=== PATIENT | female | born 1990 ===

== ENCOUNTER 2020-09-05 16:57 | Emergency (ER) | payer MEDICAID, SELFPAY ==
[2020-09-05 17:55] VITALS: BP 114/70; PULSE 78; RESP 16; TEMP 36.8; O2SAT 100; BMI 15.4
--- NOTE | 2020-09-05 18:34 | PC.NURSE ---
PT ambulated to pod with steady gait, denies complaints at this time. Pt states she has been very depressed with thoughts that she does not want to be alive, but states she does not want to kill herself. Pt states she is not taking any medications at this time.
[2020-09-05 20:00] VITALS: RESP 18
[2020-09-05 20:42] LABS: MANUAL DIFF FLAG NO
[2020-09-05 20:45] LABS: Basophils Percent Auto 0.5 % (0-2); Eosinophils Absolute Auto 0.1 X10*3/uL (0.0-0.4); Eosinophils Percent Auto 1.1 % (0-4); Hematocrit 39.2 % (37-47); Hemoglobin 12.5 g/dl (12.0-16.0); Lymphocytes Absolute Auto 2.4 X10*3/uL (1.2-4.9); Lymphocytes Percent Auto 38.1 % (20-40); Mean Corpuscular HGB Conc 31.9 g/dl (31.0-35.0); Mean Corpuscular Hemoglobin 26.3 pg (27.0-33.0); Mean Corpuscular Volume 82.4 fL (80-98); Mean Platelet Volume 10.2 fL (9.4-12.3); Monocytes Absolute Auto 0.6 X10*3/uL (0.1-1.2); Monocytes Percent Auto 9.9 % (2-11); Neutrophils Absolute Auto 3.1 X10*3/uL (2.0-8.3); Neutrophils Percent Auto 50.4 % (45-73); Platelet Count 158 X10*3/uL (160-400); Red Blood Count 4.76 X10*6/uL (4.20-5.50); Red Cell Distribution Width 13.1 % (11.0-16.0); White Blood Count 6.2 X10*3/uL (4.8-10.8)
[2020-09-05 21:05] LABS: Ethanol < 10 mg/dL
[2020-09-05 21:06] LABS: Alanine Aminotransferase 8 U/L (0-31); Albumin Level 4.6 g/dL (3.5-5.0); Alkaline Phosphatase 52 U/L (39-117); Anion Gap 11 (12-20); Aspartate Amino Transferase 13 U/L (5-31); Bilirubin Total 0.7 mg/dL (0.0-1.0); Blood Urea Nitrogen 10 mg/dL (9-16); Carbon Dioxide 26 mmol/L (22-29); Chloride 100 mmol/L (96-108); Creatinine Clr Calc Pharmacy 65.8; Estimated Glomerular Filt Rate > 60; Glucose Random 96 mg/dL (60-115); Potassium 3.6 mmol/l (3.3-5.1); Sodium 133 mmol/L (135-145); Total Protein 7.8 g/dL (6.5-8.0)
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
[2020-09-05 21:50] VITALS: BP 111/88; PULSE 76; RESP 18; TEMP 37; O2SAT 100
--- NOTE | 2020-09-05 23:20 | PC.NURSE ---
Faxed to [facility] at [phone]. Per [facility], staff member will come and evaluate pt during overnight shift.
[2020-09-05 23:38] VITALS: RESP 18
--- NOTE | 2020-09-06 00:21 | PC.NURSE ---
Sister called for update. Karine can be reached at [phone].
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
[2020-09-06 03:32] VITALS: RESP 18
[2020-09-06 05:12] LABS: SARS COV2 PCR INHOUSE NEGATIVE (Negative)
[2020-09-06 06:16] VITALS: BP 100/63; PULSE 57; RESP 15; TEMP 36.7; O2SAT 99
[2020-09-06 06:43] LABS: Glucose Urine UA NEG (NEG); Leukocyte Esterase Urine NEG (NEG); Nitrite Urine NEG (NEG); Specific Gravity - Urine >= 1.030 (1.005-1.025); Urine Blood NEG (NEG); Urine Ketones 15 MG/DL (NEG); Urine Protein NEG (NEG-TRACE)
[2020-09-06 06:45] LABS: Appearance Urine CLOUDY; Color Urine YELLOW
[2020-09-06 06:54] LABS: Amphetamine Screen Urine Not Detected (Not Detect); Barbiturates, Urine Not Detected (Not Detect); Benzodiazepines Screen Urine Not Detected (Not Detect); Cannabinoid Screen Urine POSITIVE (Not Detect); Cocaine Screen Urine Not Detected (Not Detect); Opiate Screen Urine Not Detected (Not Detect); Phencyclidine Screen Urine POSITIVE (Not Detect)
--- NOTE | 2020-09-06 06:56 | PC.NURSE ---
Report received. PT sleeping in bed. Breathing is even and unlabored. Plan is to transfer to respite this morning.
[2020-09-06 08:22] LABS: UPreg QC Valid YES
[2020-09-06 08:23] LABS: Urine Pregnancy NEGATIVE (NEGATIVE)
[2020-09-06 08:47] VITALS: BP 105/58; PULSE 62; RESP 18; TEMP 37.2; O2SAT 98
--- NOTE | 2020-09-06 09:08 | PC.NURSE ---
PT sleeping in bed. Breathing is even and unlabored. PT being transferred to respite facility today.
== END 2020-09-06 10:03 | disposition home or self-care (01) ==
PROVIDERS: Nurse Practitioner Primary Care; Emergency Provider Internal Medicine
DX: F32.9 Major depressive disorder, single episode, unspecified (principal); Z20.828 Contact with and (suspected) exposure to other viral communicable diseases; F17.200 Nicotine dependence, unspecified, uncomplicated; F12.90 Cannabis use, unspecified, uncomplicated; F16.90 Hallucinogen use, unspecified, uncomplicated
CPT/HCPCS: 36415; 80053; 80307; 80320; 81003; 81025; 85025; 87635; 99285

== ENCOUNTER 2021-01-13 22:58 | Emergency (ER) | payer MEDICAID, SELFPAY ==
[2021-01-13 23:07] VITALS: BP 106/67; BP 118/70; PULSE 61; PULSE 76; RESP 16; TEMP 37.2; O2SAT 100; O2SAT 99; BMI 18.8
[2021-01-14] VITALS: BP 105/56; PULSE 68; RESP 16; O2SAT 99
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
--- NOTE | 2021-01-14 00:56 | PC.NURSE ---
This RN spoke with patient. Pt denies SI/HI, states my tooth hurts (while pointing to left side of face). Pt does not appear to be in acute distress, was sleeping just prior to this RN and provider entering the room. Upon exiting room, the patient closed her eyes and went back to sleep. Per Melany (provider), plan to medicate and discharge for dental pain. recycling collections driver (Blanca) aware.
== END 2021-01-14 01:15 | disposition home or self-care (01) ==
PROVIDERS: Emergency Provider Internal Medicine
DX: F16.10 Hallucinogen abuse, uncomplicated (principal); K08.89 Other specified disorders of teeth and supporting structures; R51.9 Headache, unspecified; Z79.899 Other long term (current) drug therapy
CPT/HCPCS: 99283; 99284

== ENCOUNTER 2021-07-28 19:10 | Emergency (ER) | payer MEDICAID, SELFPAY ==
[2021-07-28 19:41] VITALS: BP 131/95; PULSE 79; RESP 18; TEMP 37.1; O2SAT 100; BMI 18.7
[2021-07-28 20:44] VITALS: BP 110/83; PULSE 98; RESP 20; O2SAT 100
[2021-07-28] MEDS: LORazepam 0.5 MG TABLET PO (21:38)
--- NOTE | 2021-07-29 00:27 | ED.ANXIETY ---
HPI - Anxiety General Chief Complaint: Anxiety Stated Complaint: Panic Attack Time Seen by Provider: 07/28/21 21:25 Source: patient Mode of arrival: ambulatory Limitations: no limitations History of Present Illness HPI narrative: . History of anxiety/panic attacks complaining of feeling panic attack for last few hours restless hyperventilating denies any recent life stressor at home do not take any medication for anxiety Related Data Previous Rx's Medication Instructions Recorded clindamycin HCl 300 mg capsule 300 mg PO BID 7 Days #14 cap 01/14/21 Allergies Allergy/AdvReac Type Severity Reaction Status Date / Time ibuprofen [IBUPROFEN] Allergy Mild HIVES Verified 07/28/21 19:45 Penicillins Allergy Unknown HIVES Verified 07/28/21 19:45 sulfamethoxazole Allergy Unknown RASH Verified 07/28/21 19:45 [From Bactrim] trimethoprim [From Bactrim] Allergy Unknown RASH Verified 07/28/21 19:45 vancomycin [From Vancocin] Allergy Unknown Rash Verified 07/28/21 19:45 Review of Systems Review of Systems: Yes all other systems are reviewed and are negative PMFSH Past Medical History Surgical History History of hysterectomy Social History Social History Alcohol intake: unknown Advance Directives: No Patient : No Physical Exam Vital Signs: Vital Signs: Last Vital Signs Temp 98.7 F 07/28/21 19:41 Pulse 98 07/28/21 20:44 Resp 20 07/28/21 20:44 BP 110/83 07/28/21 20:44 Pulse Ox 100 07/28/21 20:44 Body Mass Index 18.7 Appearance: Alert. Oriented X3. Anxious Eyes: PERRLA, No Nystagmus ENT: Pharynx normal. Oral Mucosa moist Neck: Normal inspection. Neck supple. CVS: Normal heart rate and rhythm. Pulses normal. Respiratory: No respiratory distress. Equal air entry bilateral, no wheezing/rales/rhonchi Abdomen: Soft and nontender. Bowel sounds are present, no mass palpable Skin: Skin warm and dry. Normal skin color. Normal skin turgor. Extremities: No lower extremity edema. No calf tenderness Psych: Restless and anxious no suicidal ideation no hallucination or delusion Neuro: Oriented X 3. No motor deficit. Discharge Plan Discharge Clinical Impression: Panic disorder Patient Disposition: Home, Self-Care Instructions: Panic Attack (ED) Additional Instructions: Rest at home follow-up with pre PCP Prescriptions: No Action clindamycin HCl 300 mg capsule 300 mg PO BID 7 Days Qty: 14 RF: 0 Interventions: ED Discharge Assessment Last Done: 07/28/21 21:42 Discharge Date/Time: 07/28/21 21:44
== END 2021-07-28 21:44 | disposition home or self-care (01) ==
PROVIDERS: Emergency Provider Internal Medicine
DX: F41.0 Panic disorder [episodic paroxysmal anxiety] (principal)
CPT/HCPCS: 99284

== ENCOUNTER 2021-08-01 01:34 | Emergency (ER) | payer MEDICAID, SELFPAY ==
[2021-08-01 01:41] VITALS: BP 116/64; PULSE 63; RESP 16; TEMP 36.9; O2SAT 99; BMI 19.9
--- NOTE | 2021-08-01 01:42 | ED.ANXIETY ---
HPI - Anxiety General Chief Complaint: Anxiety Stated Complaint: ANXIETY Time Seen by Provider: 08/01/21 01:43 Source: patient, EMS and old records reviewed Mode of arrival: EMS Limitations: no limitations History of Present Illness MD complaint: anxiety, heart racing and shortness of breath Onset (ago): minute(s) Symptoms: chest pain and palpitations Severity: similar to previous episodes Quality: improving (RESOLVED) Place: home History of similar episodes: Yes Provoking factors: none known Relieving factors: rest Exacerbating factors: nothing Associated symptoms: denies other symptoms Related Data Previous Rx's Medication Instructions Recorded clindamycin HCl 300 mg capsule 300 mg PO BID 7 Days #14 cap 01/14/21 hydroxyzine HCl 25 mg tablet 25 mg PO TID PRN #30 tab 08/01/21 Allergies Allergy/AdvReac Type Severity Reaction Status Date / Time ibuprofen [IBUPROFEN] Allergy Mild HIVES Verified 08/01/21 01:51 Penicillins Allergy Unknown HIVES Verified 08/01/21 01:51 sulfamethoxazole Allergy Unknown RASH Verified 08/01/21 01:51 [From Bactrim] trimethoprim [From Bactrim] Allergy Unknown RASH Verified 08/01/21 01:51 vancomycin [From Vancocin] Allergy Unknown Rash Verified 08/01/21 01:51 Review of Systems Review of Systems: Constitutional : No Fever, No Chills ENT/Mouth : No Ear Pain, No Nasal Congestion, No sore throat Eyes: No Eye Pain, No Swelling, No Redness Cardiovascular : No Chest Pain, No SOB - had it but resolved Respiratory : No Cough, No Sputum, No Dyspnea Gastrointestinal : No Nausea, No Vomiting, No Diarrhea, No Hematochezia, No Melena Genitourinary : No Dysuria, No Urinary Frequency, No Hematuria Musculoskeletal : No Myalgias Skin : No Skin Lesions, No rash Neuro : No Weakness, No Numbness, No Paresthesias, No Dizziness, No Headache Psych : positive Anxiety, no Depression, no SI/HI Heme/Lymph: No Lymphadenopathy Endocrine : No Polyuria, No Polydipsia All other systems reviewed and are negative [facility] Past Medical History Attestation statement: The following information was validated with the patient. Medical History Anxiety Surgical History History of hysterectomy Social History Social History (Updated 08/01/21 @ 01:57 by Astrid Thapa DO) Alcohol intake: unknown Substance Use Type: Marijuana Patient : No Physical Exam Vital Signs: Vital Signs: Last Vital Signs Temp 98.5 F 08/01/21 01:41 Pulse 63 08/01/21 01:41 Resp 16 08/01/21 01:41 BP 116/64 08/01/21 01:41 Pulse Ox 99 08/01/21 01:41 Body Mass Index 19.9 Appearance: Alert. Oriented X3. No acute distress. Eyes: Pupils equal, round and reactive to light. ENT: Pharynx normal. Neck: Normal inspection. Neck supple. CVS: Normal heart rate and rhythm. Pulses normal. Respiratory: No respiratory distress. Breath sounds normal. Abdomen: Soft and nontender. Skin: Skin warm and dry. Normal skin color. Extremities: No lower extremity edema. Neuro: Oriented X 3. No motor deficit. No sensory deficit. MDM - Anxiety MDM Narrative Medical decision making narrative: here with recurrent panic attacks already resolved on arrival, VS stable, no SI, does not want to talk to N will give PRN atarax and counseling services provided Discharge Plan Discharge Clinical Impression: Panic disorder Patient Disposition: Home, Self-Care Instructions: Panic Attack (ED) Additional Instructions: return to ED for any worsening symptoms or concerns Prescriptions: New hydroxyzine HCl 25 mg tablet 25 mg PO TID PRN (Reason: anxiety) Qty: 30 RF: 1 No Action clindamycin HCl 300 mg capsule 300 mg PO BID 7 Days Qty: 14 RF: 0 Stand Alone Forms: Work/School Release
[2021-08-01] MEDS: hydrOXYzine HCL 25 MG TABLET PO (01:56)
--- NOTE | 2021-08-01 01:58 | PC.NURSE ---
MD at bed side for primary evaluation. PT medicated per JAN. Plan is to discharge home once anxiety decreases.
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
[2021-08-01 05:13] VITALS: RESP 16
[2021-08-01 05:59] VITALS: BP 116/78; PULSE 53; RESP 16; O2SAT 98
== END 2021-08-01 06:06 | disposition home or self-care (01) ==
LOC: HO.ED 01:59
PROVIDERS: Emergency Provider Emergency Medicine
DX: F41.1 Generalized anxiety disorder (principal); F43.0 Acute stress reaction; R06.02 Shortness of breath; F41.0 Panic disorder [episodic paroxysmal anxiety]; Z79.899 Other long term (current) drug therapy
CPT/HCPCS: 99283; 99284

== ENCOUNTER 2021-08-15 17:12 | Emergency (ER) | payer MEDICAID, SELFPAY ==
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
[2021-08-15 17:23] VITALS: BP 103/56; PULSE 81; RESP 16; TEMP 36.6; O2SAT 98; BMI 19.2
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
[2021-08-15] MEDS: Acetaminophen 325 MG TABLET 650 MG PO (19:36)
--- NOTE | 2021-08-15 22:28 | PC.NURSE ---
HARD COLLAR IN PLACE TO NECK NEURO INTACT.
--- NOTE | 2021-08-15 22:30 | PC.NURSE ---
PT TRANSFER TO [facility]IA [facility] GOING TO ED FOR MRI.
== END 2021-08-15 22:30 | disposition short-term general hospital (02) ==
PROVIDERS: Emergency Provider Emergency Medicine
DX: S13.100A Subluxation of unspecified cervical vertebrae, initial encounter (principal); S89.91XA Unspecified injury of right lower leg, initial encounter; S09.90XA Unspecified injury of head, initial encounter; S00.83XA Contusion of other part of head, initial encounter; M25.512 Pain in left shoulder; M25.511 Pain in right shoulder; G44.309 Post-traumatic headache, unspecified, not intractable; Y04.8XXA Assault by other bodily force, initial encounter; Y93.9 Activity, unspecified; Y92.9 Unspecified place or not applicable; Y99.9 Unspecified external cause status; Z79.899 Other long term (current) drug therapy
CPT/HCPCS: 70450; 70486; 71046; 71110; 72125; 73030; 73562; 99285

== ENCOUNTER 2022-04-30 12:41 | Emergency (ER) | payer MEDICAID, SELFPAY ==
[2022-04-30 12:45] VITALS: BP 126/61; PULSE 80; RESP 18; TEMP 36.8; O2SAT 100; BMI 18.3
== END 2022-04-30 17:01 | disposition left against medical advice (07) ==
LOC: HO.ED 14:34
PROVIDERS: Emergency Provider Emergency Medicine
DX: F16.20 Hallucinogen dependence, uncomplicated (principal); Z72.89 Other problems related to lifestyle; Z73.89 Other problems related to life management difficulty
CPT/HCPCS: 99281

== ENCOUNTER 2022-11-14 14:06 | Emergency (ER) | payer MEDICAID, SELFPAY ==
[2022-11-14 14:09] VITALS: BP 122/70; BP 98/55; PULSE 109; PULSE 98; RESP 20; TEMP 39.2; O2SAT 98; BMI 18.6
[2022-11-14] MEDS: Acetaminophen 325 MG TABLET 975 MG PO (14:17)
[2022-11-14] MEDS: Ondansetron ODT 4 MG TAB.RAPDIS TRANSLINGU (14:18)
--- NOTE | 2022-11-14 14:26 | ED.GENADULT ---
HPI - General Adult General Chief complaint: Upper Respiratory Symptoms <CASSY Cronin - Last Filed: 11/18/22 12:32> Stated complaint: nausea, vomiting per EMS <CASSY Cronin - Last Filed: 11/18/22 12:32> Time Seen by Provider: 11/14/22 15:50 <CASSY Cronin - Last Filed: 11/18/22 12:32> Source: patient <Dona Murcia MD - Last Filed: 11/14/22 16:48> Mode of arrival: ambulatory <Dona Murcia MD - Last Filed: 11/14/22 16:48> Limitations: no limitations <Dona Murcia MD - Last Filed: 11/14/22 16:48> History of Present Illness HPI narrative: Comes to the emergency room complaining cough, diffuse body aches, headache for 2 days. Patient states that she has a co-worker that has the same symptoms. Patient also complaining of nausea and vomiting, no diarrhea. <Dona Murcia MD - Last Filed: 11/14/22 16:48> Related Data Home medications: Previous Rx's Medication Instructions Recorded clindamycin HCl 300 mg capsule 300 mg PO BID 7 days #14 caps 01/14/21 hydroxyzine HCl 25 mg tablet 25 mg PO TID PRN anxiety #30 tabs 08/01/21 acetaminophen 500 mg capsule 500 mg PO Q6H PRN fever or pain 11/14/22 #20 caps oseltamivir 75 mg capsule (Tamiflu) 75 mg PO Q12H 5 days #10 caps 11/14/22 <CASSY Cronin - Last Filed: 11/18/22 12:32> Allergies/adverse reactions: Allergies Allergy/AdvReac Type Severity Reaction Status Date / Time ibuprofen [IBUPROFEN] Allergy Mild HIVES Verified 08/01/21 01:51 Penicillins Allergy Unknown HIVES Verified 08/01/21 01:51 sulfamethoxazole Allergy Unknown RASH Verified 08/01/21 01:51 [From Bactrim] trimethoprim [From Bactrim] Allergy Unknown RASH Verified 08/01/21 01:51 vancomycin [From Vancocin] Allergy Unknown Rash Verified 08/01/21 01:51 <CASSY Cronin Last Filed: 11/18/22 12:32> Review of Systems Review of Systems: Constitutional : No Weight loss, complaining of fever and chills, myalgias ENT/Mouth : No Hearing loss, No Ear Pain, No Nasal Congestion, No Sinus Pain, No Hoarseness, complaining of sore throat, No Rhinorrhea, No Swallowing Difficulty Eyes: No Eye Pain, No Swelling, No Redness, No Foreign Body, No Discharge, No Vision Changes Cardiovascular : No Chest Pain, No SOB, No Dyspnea on Exertion, No Orthopnea, No Edema, No Palpitations Respiratory : No Cough, No Sputum, No Wheezing, No Smoke Exposure, No Dyspnea Gastrointestinal : No Nausea, No Vomiting, No Diarrhea, No Constipation, No abdominal Pain, No Hematochezia, No Melena Genitourinary : no irregular bleeding, No Dysuria, No Urinary Frequency, No Hematuria, No Urinary Incontinence, No Urgency, No Flank Pain, No Urinary Flow Changes, No Hesitancy Musculoskeletal : No joint pain, complaining of diffuse Myalgias, No Joint Swelling Skin : No Skin Lesions, No rash Neuro : No Weakness, No Numbness, No Paresthesias, No Loss of Consciousness, No Dizziness, complaining of a frontal Headache Psych : No Anxiety/Panic, No Depression, No SI/HI/AH/VH, No Social Issues, Heme/Lymph: No Bruising, No Bleeding,No Lymphadenopathy Endocrine : No Polyuria, No Polydipsia, No Temperature Intolerance <Dona Murcia MD - Last Filed: 11/14/22 16:48> [facility] Past Medical History Medical History: Medical History (Updated 11/15/22 @ 00:00 by Marcial Kong) Anxiety Substance abuse Substance abuse <CASSY Cronin - Last Filed: 11/18/22 12:32> Surgical History: Surgical History History of hysterectomy <CASSY Cronin - Last Filed: 11/18/22 12:32> Social History Social History: Social History (Updated 08/01/21 @ 01:57 by Fara Thapa DO) Alcohol intake: unknown Substance Use Type: Marijuana Advance Directives: No <CASSY Cronin - Last Filed: 11/18/22 12:32> Physical Exam ED Vital Signs: Vital Signs - 24 hr 11/14/22 14:09 Temperature 102.6 F H Pulse Rate 109 H Respiratory Rate 20 Blood Pressure 98/55 L Pulse Oximetry 98 Oxygen Delivery Method Room Air BMI result Body Mass Index 18.6 <CASSY Cronin - Last Filed: 11/18/22 12:32> Vital Signs - 24 hr 11/14/22 14:09 Temperature 102.6 F H Pulse Rate 109 H Respiratory Rate 20 Blood Pressure 98/55 L Pulse Oximetry 98 Oxygen Delivery Method Room Air BMI result Body Mass Index 18.6 <Dona Murcia MD - Last Filed: 11/14/22 16:48> Const Other: Appearance: Alert. Oriented X3. No acute distress. Seems weak Eyes: Pupils equal, round and reactive to light. ENT: Pharynx normal. No exudates, no abscess is visualized Neck: Normal inspection. Neck supple. No lymph nodes noted. No crepitus CVS: Normal heart rate and rhythm. Pulses normal. Normal S1 and S2 Respiratory: No respiratory distress. Breath sounds normal. No Wheezing. No rales Abdomen: Soft and nontender. No rigidity. No distention. Skin: Skin warm and dry. Normal skin color. Normal skin turgor. Extremities: No lower extremity edema. No Lacerations. No Rash Neuro: Oriented X 3. No motor deficit. No sensory deficit. Moving all extremities. No slurred speech. CN 2 through 12 grossly intact Psych: calm, cooperative, normal affect <Dona Murcia MD - Last Filed: 11/14/22 16:48> Course Course Course Narrative: RME: presents to the ED for sore throat, coughing, runny nose. Coworker also sick. Patient for febrile and tachycardic. SARS and strep test ordered <CASSY Cronin - Last Filed: 11/18/22 12:32> RME: presents to the ED for sore throat, coughing, runny nose. Coworker also sick. Patient for febrile and tachycardic. SARS and strep test ordered Patient tested positive for influenza A. Patient is on her 2nd day of symptoms. Patient agreeable to take Tamiflu. <Dona Murcia MD - Last Filed: 11/14/22 16:48> Medications Administered Discontinued Medications Generic Name Dose Route Start Last Admin Trade Name Freq PRN Reason Stop Dose Admin Acetaminophen 975 mg 11/14/22 14:15 11/14/22 14:17 Acetaminophen 325 Mg Tablet PO 11/14/22 14:16 975 mg ONCE ONE Administration Acetaminophen 650 mg 11/14/22 16:01 11/14/22 17:18 Acetaminophen 325 Mg Tablet PO 11/14/22 16:02 Not Given ONCE ONE Ondansetron HCl 4 mg 11/14/22 14:15 11/14/22 14:18 Ondansetron Odt 4 Mg Tab.Rapdis TRANSLINGU 11/14/22 14:16 4 mg ONCE ONE Administration <CASSY Cronin - Last Filed: 11/18/22 12:32> Medications Administered Discontinued Medications Generic Name Dose Route Start Last Admin Trade Name Hallie PRN Reason Stop Dose Admin Acetaminophen 975 mg 11/14/22 14:15 11/14/22 14:17 Acetaminophen 325 Mg Tablet PO 11/14/22 14:16 975 mg ONCE ONE Administration Acetaminophen 650 mg 11/14/22 16:01 11/14/22 17:18 Acetaminophen 325 Mg Tablet PO 11/14/22 16:02 Not Given ONCE ONE Ondansetron HCl 4 mg 11/14/22 14:15 11/14/22 14:18 Ondansetron Odt 4 Mg Tab.Rapdis TRANSLINGU 11/14/22 14:16 4 mg ONCE ONE Administration <Dona Murcia MD - Last Filed: 11/14/22 16:48> Medical Decision Making Differential Diagnosis Differential Diagnoses: The differential diagnosis associated with the presentation includes (Influenza, RSV, COVID, URI) <Dona Murcia MD - Last Filed: 11/14/22 16:48> Lab Data MDM Lab Attestation statement: I reviewed the patient's lab results. <Dona Murcia MD - Last Filed: 11/14/22 16:48> Labs: Lab Results 11/14/22 11/14/22 Range/Units 14:37 14:37 Influenza Type A (PCR) POSITIVE A (Negative) Influenza Type B (PCR) NEGATIVE (Negative) RSV RNA Qual (PCR) NEGATIVE (Negative) SARS-CoV-2 RNA (RT-PCR) NEGATIVE (Negative) S. pyogenes GrpA BOBBI Negative (Negative) <CASSY Cronin - Last Filed: 11/18/22 12:32> Lab Results 11/14/22 11/14/22 Range/Units 14:37 14:37 Influenza Type A (PCR) POSITIVE A (Negative) Influenza Type B (PCR) NEGATIVE (Negative) RSV RNA Qual (PCR) NEGATIVE (Negative) SARS-CoV-2 RNA (RT-PCR) NEGATIVE (Negative) S. pyogenes GrpA BOBBI Negative (Negative) <Dona Murcia MD - Last Filed: 11/14/22 16:48> Discharge Plan Discharge Clinical Impression: Influenza A <CASSY Cronin - Last Filed: 11/18/22 12:32> Patient Disposition: Home, Self-Care <CASSY Cronin - Last Filed: 11/18/22 12:32> Instructions: Influenza (ED) <CASSY Cronin - Last Filed: 11/18/22 12:32> Additional Instructions: Please follow-up with your primary care physician tomorrow. If you have any worsening or new symptoms, please return to the emergency room or call 911 <CASSY Cronin - Last Filed: 11/18/22 12:32> Prescriptions: New oseltamivir [Tamiflu] 75 mg capsule 75 mg PO Q12H 5 Days Qty: 10 0RF acetaminophen 500 mg capsule 500 mg PO Q6H PRN (Reason: fever or pain) Qty: 20 0RF No Action clindamycin HCl 300 mg capsule 300 mg PO BID 7 Days Qty: 14 0RF hydroxyzine HCl 25 mg tablet 25 mg PO TID PRN (Reason: anxiety) Qty: 30 1RF <CASSY Cronin - Last Filed: 11/18/22 12:32> Stand Alone Forms: Work/School Release <CASSY Cronin - Last Filed: 11/18/22 12:32> Interventions: ED Discharge Assessment Last Done: 11/14/22 17:15 <CASSY Cronin - Last Filed: 11/18/22 12:32> Discharge Date/Time: 11/14/22 17:19 <CASSY Cronin - Last Filed: 11/18/22 12:32>
--- OUTSIDE RECORDS SUMMARY | 2022-11-14 14:40 | XMS_ITS | Continuity of Care Document ---
:1990 Author Organization [facility] Address [address] [place] [address], [address] [place] [address]-
--- OUTSIDE RECORDS SUMMARY | 2022-11-14 14:40 | XMS_ITS | Continuity of Care Document ---
:1990 Author Organization [facility] Address [address] [place] [id number]
[2022-11-14 14:54] LABS: Strep A Nucleic Acid Negative (Negative)
[2022-11-14 15:49] LABS: Influenza A PCR POSITIVE (Negative); Influenza B PCR NEGATIVE (Negative); Resp Syncy Virus RNA Qual PCR NEGATIVE (Negative); SARS COV2 PCR INHOUSE NEGATIVE (Negative)
== END 2022-11-14 17:19 | disposition home or self-care (01) ==
PROVIDERS: Physician Assistant; Emergency Provider Emergency Medicine
DX: J11.1 Influenza due to unidentified influenza virus with other respiratory manifestations (principal); R50.9 Fever, unspecified; Z20.822 Contact with and (suspected) exposure to COVID-19; F16.20 Hallucinogen dependence, uncomplicated
CPT/HCPCS: 0241U; 87651; 99283

== ENCOUNTER 2023-05-03 16:40 | Emergency (ER) | payer OTHER, MEDICAID, SELFPAY ==
[2023-05-03 16:49] VITALS: BP 114/70; BP 116/77; PULSE 69; PULSE 97; RESP 16; TEMP 36.4; O2SAT 97; BMI 16.5
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
--- NOTE | 2023-05-03 18:02 | PC.NURSE ---
PT REFUSING TO CHANGE, HER BEDSIDE BELONGINGS WERE LOCKED UP BY SECURITY
--- NOTE | 2023-05-03 18:36 | ED.PSYCH ---
HPI - Psych General Chief Complaint: ETOH/Substance Use Stated Complaint: drug use Time Seen by Provider: 05/03/23 17:42 Source: patient and EMS Mode of arrival: EMS Limitations: no limitations History of Present Illness HPI Narrative: 32-year-old female presents to the ER with concern from family that she made suicidal statements and is using PCP. Patient on arrival is complaining of suicidal ideations with plan to hang herself on a tree. No HI. No hallucinations. Patient denies substance use. Related Data Previous Rx's Medication Instructions Recorded clindamycin HCl 300 mg capsule 300 mg PO BID 7 days #14 caps 01/14/21 hydroxyzine HCl 25 mg tablet 25 mg PO TID PRN anxiety #30 tabs 08/01/21 acetaminophen 500 mg capsule 500 mg PO Q6H PRN fever or pain 11/14/22 #20 caps oseltamivir 75 mg capsule (Tamiflu) 75 mg PO Q12H 5 days #10 caps 11/14/22 Allergies Allergy/AdvReac Type Severity Reaction Status Date / Time ibuprofen [IBUPROFEN] Allergy Mild HIVES Verified 08/01/21 01:51 Penicillins Allergy Unknown HIVES Verified 08/01/21 01:51 sulfamethoxazole Allergy Unknown RASH Verified 08/01/21 01:51 [From Bactrim] trimethoprim [From Bactrim] Allergy Unknown RASH Verified 08/01/21 01:51 vancomycin [From Vancocin] Allergy Unknown Rash Verified 08/01/21 01:51 Review of Systems Review of Systems: Yes all other systems are reviewed and are negative Constitutional: Constitutional: Reports no additional constitutional complaints, Denies body ache(s), Denies chills, Denies fever(s), Denies headache(s) and Denies weakness Eyes: Eyes: Reports no additional eye complaints and Denies change in vision ENT: Reports system reviewed and no additional complaints, except as documented, Denies dizziness, Denies headache(s), Denies nasal congestion, Denies nasal discharge and Denies neck pain Cardiovascular: Cardiovascular: Reports no additional cardiovascular complaints, Denies chest pain, Denies leg edema and Denies dyspnea Respiratory: Respiratory: Reports no additional respiratory complaints, Denies cough and Denies dyspnea Gastrointestinal: Gastrointestinal: Reports no additional gastrointestinal complaints, Denies abdominal pain, Denies diarrhea, Denies nausea and Denies vomiting Genitourinary: Genitourinary: Reports no additional female genitourinary complaints and Denies urinary incontinence Musculoskeletal: Musculoskeletal: Reports no additional musculoskeletal complaints, Denies back pain, Denies arthralgias, Denies joint swelling, Denies neck pain, Denies numbness and Denies tingling Integumentary/Breasts: Skin/Breast: Reports system reviewed and no additional complaints, except as docu and Denies rash Neurologic: Reports system reviewed and no additional complaints, except as documented, Denies Abnormal speech present, Denies dizziness, Denies headache(s), Denies numbness, Denies tingling and Denies weakness Psychiatric: Psychiatric: Reports suicidal ideation [facility] Past Medical History Attestation statement: The following information was validated with the patient. Source: old records reviewed and nursing notes reviewed Medical History Anxiety Substance abuse Substance abuse Surgical History History of hysterectomy Social History Social History (Updated 08/01/21 @ 01:57 by Fara Thapa DO) Alcohol intake: current Alcohol intake frequency: holidays/special occasions only Smoked in Last 30 Days: No Use of substances other than those prescribed or required for medical reasons: Yes Substance Use Type: Marijuana Advance Directives: No Advance Directives Information Provided: Yes Patient : No Physical Exam Vital Signs: Vital Signs: Last Vital Signs Temp 97.5 F 05/03/23 16:49 Pulse 96 05/04/23 00:21 Resp 18 05/04/23 00:21 BP 102/71 05/04/23 00:21 Pulse Ox 99 05/04/23 00:21 O2 Del Method Room Air 05/04/23 00:21 BMI result Body Mass Index 16.5 Const: General: cooperative, healthy appearing, comfortable and no acute distress Orientation/consciousness: patient oriented x3 Limitations: no limitations HEENT: Head: Yes normal to inspection Ears: hearing grossly normal bilaterally General nose exam: Normal external nose present Face and sinus: Yes normal facial exam Mouth: Normal oral and palatal mucosa present Throat: Yes posterior oropharynx normal Eyes: General: appearance normal, both eyes and all related structures Pupils: Equal, round and reactive pupils present Neck: Neck: Yes normal visual inspection Chest: Chest palpation & inspection: normal inspection of the chest Resp: Effort & Inspection: normal respiratory effort Auscultation: clear to auscultation bilaterally Cardio: Rate: regular rate Rhythm: regular rhythm Peripheral pulses: Peripheral pulses 2+ throughout GI: Inspection: Yes normal to inspection Palpation (GI): Soft to palpation and nontender Auscultation: normal bowel sounds Back/Spine/Pelvis: Thoracic/Lumbar Spine: thoracic and lumbar spine normal to inspection Skin: General skin exam: no rashes or lesions noted Neuro: Other: Patient is sleeping, arouses to verbal General: patient oriented x3, no focal motor deficits and normal sensation to monofilament Cranial nerves: Yes Equal, round and reactive pupils present Cognition (Neuro): normal cognition Speech: No Abnormal speech present Gait exam (Neuro): Normal gait present Motor exam (neuro): 5/5 motor strength present throughout Extrem: General: Yes normal to inspection Course Course Course Narrative: 0140-Patient is pending a crisis evaluation. Placed in physician observation pending disposition Medical Decision Making Medical Decision Making [facility] Narrative: 32-year-old female here with concern for substance use and suicidal statement Patient does endorse SI with plan Will need labs, drug screen, crisis consultation No concern for acute ingestion or trauma Differential Diagnosis Differential Diagnoses: The differential diagnosis associated with the presentation includes Polysubstance Lab Data MDM Lab Attestation statement: I reviewed the patient's lab results. 05/03/23 20:26 05/03/23 20:26 Labs: Lab Results 05/03/23 05/03/23 Range/Units 20:26 20:26 WBC 6.4 (4.8-10.8) X10*3/uL RBC 5.01 (4.20-5.50) X10*6/uL Hgb 13.2 (12.0-16.0) g/dl Hct 41.6 (37.0-47.0) % MCV 83.0 (80.0-98.0) fL MCH 26.3 L (27.0-33.0) pg MCHC 31.7 (31.0-35.0) g/dl RDW 13.3 (11.0-16.0) % Plt Count 239 (160-400) X10*3/uL MPV 9.7 (9.4-12.3) fL Immature Gran % (Auto) 0.2 (0.0-0.4) % Neut % (Auto) 42.8 L (45-73) % Lymph % (Auto) 43.6 H (20-40) % [place] % (Auto) 10.6 (2-11) % Eos % (Auto) 2.2 (0-4) % Baso % (Auto) 0.6 (0-2) % Lymph # (Auto) 2.8 (1.2-4.9) X10*3/uL [place] # (Auto) 0.7 (0.1-1.2) X10*3/uL Eos # (Auto) 0.1 (0.0-0.4) X10*3/uL Baso # (Auto) 0.0 (0.0-0.2) X10*3/uL Abs Immat Gran (auto) 0.01 (0.00-0.03) X10*3/uL Absolute Neuts (auto) 2.8 (2.0-8.3) x10*3/uL Absolute Nucleated RBC 0.000 (0.0-0.012) X10*3/uL Nucleated RBC % (auto) 0.0 (0.0-0.2) /100WBC Sodium 139 (135-145) mmol/L Potassium 4.0 (3.3-5.1) mmol/L Chloride 103 (96-108) mmol/L Carbon Dioxide 27 (22-29) mmol/L Anion Gap 13 (12-20) BUN 19 H (9-16) mg/dL Creatinine 0.86 (0.5-1.4) mg/dL Estim Creat Clear Calc 65.6 Estimated GFR > 60 Random Glucose 83 (60-115) mg/dL Calcium 10.0 D (8.4-10.2) mg/dL Total Bilirubin 0.8 (0.0-1.0) mg/dL Direct Bilirubin 0.2 (0.0-0.5) mg/dL AST 20 (5-31) U/L ALT 27 (0-31) U/L Alkaline Phosphatase 54 (39-117) U/L Total Protein 8.5 H (6.5-8.0) g/dL Albumin 4.7 (3.5-5.0) g/dL Ethyl Alcohol < 10 mg/dL Discharge Plan Discharge Clinical Impression: Suicidal ideations Patient Disposition: Still a Patient Prescriptions: No Action clindamycin HCl 300 mg capsule 300 mg PO BID 7 Days Qty: 14 0RF hydroxyzine HCl 25 mg tablet 25 mg PO TID PRN (Reason: anxiety) Qty: 30 1RF oseltamivir [Tamiflu] 75 mg capsule 75 mg PO Q12H 5 Days Qty: 10 0RF acetaminophen 500 mg capsule 500 mg PO Q6H PRN (Reason: fever or pain) Qty: 20 0RF
--- NOTE | 2023-05-03 18:45 | MHC.EDTECH ---
pt refused to record changer and refused labs. rn aware.
--- NOTE | 2023-05-03 19:12 | MHC.EDTECH ---
Pt Refused this tech to draw labs or take any vital signs
--- NOTE | 2023-05-03 20:04 | MHC.EDTECH ---
pt sister ana maria zee phone [phone]
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
[2023-05-03 20:31] LABS: MANUAL DIFF FLAG NO
[2023-05-03 20:32] LABS: Basophils Percent Auto 0.6 % (0-2); Eosinophils Absolute Auto 0.1 X10*3/uL (0.0-0.4); Eosinophils Percent Auto 2.2 % (0-4); Hematocrit 41.6 % (37.0-47.0); Hemoglobin 13.2 g/dl (12.0-16.0); Imm Gran Abs Auto 0.01 X10*3/uL (0.00-0.03); Imm Gran Pct Auto 0.2 % (0.0-0.4); Lymphocytes Absolute Auto 2.8 X10*3/uL (1.2-4.9); Lymphocytes Percent Auto 43.6 % (20-40); Mean Corpuscular HGB Conc 31.7 g/dl (31.0-35.0); Mean Corpuscular Hemoglobin 26.3 pg (27.0-33.0); Mean Platelet Volume 9.7 fL (9.4-12.3); Monocytes Absolute Auto 0.7 X10*3/uL (0.1-1.2); Monocytes Percent Auto 10.6 % (2-11); Neutrophils Absolute Auto 2.8 x10*3/uL (2.0-8.3); Neutrophils Percent Auto 42.8 % (45-73); Platelet Count 239 X10*3/uL (160-400); Red Blood Count 5.01 X10*6/uL (4.20-5.50); Red Cell Distribution Width 13.3 % (11.0-16.0); White Blood Count 6.4 X10*3/uL (4.8-10.8)
[2023-05-03 20:57] LABS: Alanine Aminotransferase 27 U/L (0-31); Albumin Level 4.7 g/dL (3.5-5.0); Alkaline Phosphatase 54 U/L (39-117); Anion Gap 13 (12-20); Aspartate Amino Transferase 20 U/L (5-31); Bilirubin Direct 0.2 mg/dL (0.0-0.5); Bilirubin Total 0.8 mg/dL (0.0-1.0); Blood Urea Nitrogen 19 mg/dL (9-16); Carbon Dioxide 27 mmol/L (22-29); Chloride 103 mmol/L (96-108); Creatinine Clr Calc Pharmacy 65.6; Estimated Glomerular Filt Rate > 60; Ethanol < 10 mg/dL; Glucose Random 83 mg/dL (60-115); Sodium 139 mmol/L (135-145); Total Protein 8.5 g/dL (6.5-8.0)
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
--- NOTE | 2023-05-03 23:17 | PC.NURSE ---
Assumed care of pt. Pt moved to room via stretcher. Pt wth loud outbursts, sitter 1:1 at bedside for safety. Pt refusing urine speciment at this time.
[2023-05-04] VITALS (7 sets, daily range): BP systolic 88–130; BP diastolic 60–82; PULSE 72–96; RESP 15–18; TEMP 36.4–36.8; O2SAT 96–100
--- NOTE | 2023-05-04 | ECG_ITS ---
Test Reason : Chest pain Blood Pressure : / mmHG Vent. Rate : 066 BPM Atrial Rate : 066 BPM P-R Int : 132 ms QRS Dur : 096 ms QT Int : 400 ms P-R-T Axes : -17 078 043 degrees QTc Int : 419 ms Normal sinus rhythm Normal ECG When compared with ECG of 19-AUG-2017 16:19, Vent. rate has decreased BY 41 BPM Referred By: Gisela Gong Electronically Signed By:Rosas Alaniz
--- NOTE | 2023-05-04 02:04 | PC.NURSE ---
Pt woke and notified 1:1 sitter that she was experiencing chest pain. This RN was notified and orders placed. Provider aware.
[2023-05-04 02:59] LABS: Troponin-I High Sensitivity < 2.7 ng/L (<3.5-17.0)
--- NOTE | 2023-05-04 03:50 | PC.NURSE ---
Pt sleeping, easily rousable, no acute behavioral or medical concerns at this time. 1:1 with patient for safety, MJ.,
--- NOTE | 2023-05-04 06:37 | PC.NURSE ---
Pt woke, requesting phone. Provided. pt remains refusing to gice urine sample, MD aware. Pt assessed as charted for CIWA, SI and rounding.
--- NOTE | 2023-05-04 07:50 | PC.NURSE ---
assumed care of this pt at 0700. pt walked to bathroom and gave UA. ate breakfast and is now resting quietly on stretcher in no apparent distress. requested and given gingerale. denies SI/HI natanael. rr even/unlabored. wctm
[2023-05-04 07:52] LABS: UPreg QC Valid YES; Urine Pregnancy NEGATIVE (NEGATIVE)
[2023-05-04 08:01] LABS: Amphetamine Screen Urine Not Detected (Not Detect); Barbiturates, Urine Not Detected (Not Detect); Benzodiazepines Screen Urine Not Detected (Not Detect); Cannabinoid Screen Urine POSITIVE (Not Detect); Cocaine Screen Urine POSITIVE (Not Detect); Fentanyl, urine Not Detected (Not Detect); Opiate Screen Urine Not Detected (Not Detect); Phencyclidine Screen Urine POSITIVE (Not Detect)
--- NOTE | 2023-05-04 10:28 | PC.NURSE ---
pt asking to leave. ua/tox screen done. called care team to see when pt will be seen. care team says they wont be able to see her for a while. pt changing over to hospital attire with tech, going to POD.
--- NOTE | 2023-05-04 11:16 | MHC.CARE ---
CARE attempted to meet with patient, however she declines to participate in assessment and sates I want to go home . CARE team will attempt to met with patient later in the day.
--- NOTE | 2023-05-04 16:58 | MHC.CARE ---
Pt seen by CARE team for assessment, disposition could not be reached. Follow up mental status update to be done in AM.
--- NOTE | 2023-05-04 18:09 | PC.NURSE ---
Work list is not complete as patient will not answer alot of my questions. She is sleeping most of the shift after coming over this morning from the main ED. when she is awake she states that she wants to go home . unwilling to give care team her grams phone number even though I have mentioned it multiple times with no answer, very vague with me about her present and past psyc history. She is now a [employer]. she did attempt to leave the POD x 1 only, security and care team aware.
--- NOTE | 2023-05-05 02:42 | PC.NURSE ---
Pt aox4, calm and cooperative. Able to make needs known appropriately. Engages in conversations and answers questions appropriately. Laying on the couch in the community area, watching television. Reports back pain, 3/10 and not wanting to lay at the bedside due to it feels like detention. No apparent distress noted. Aware of plan of care. Will continue to monitor.
[2023-05-05 06:45] VITALS: BP 101/71; PULSE 58; RESP 15; TEMP 36.8; O2SAT 97
== END 2023-05-05 11:00 | disposition home or self-care (01) ==
PROVIDERS: Nurse Practitioner Family; Emergency Provider Emergency Medicine
DX: R45.851 Suicidal ideations (principal); F19.10 Other psychoactive substance abuse, uncomplicated; F41.9 Anxiety disorder, unspecified; F12.90 Cannabis use, unspecified, uncomplicated; Z79.899 Other long term (current) drug therapy
CPT/HCPCS: 36415; 80048; 80076; 80307; 81025; 84484; 85025; 93005; 99285; S9485

== ENCOUNTER 2023-06-22 22:07 | Emergency (ER) | payer MEDICAID, SELFPAY ==
[2023-06-22 22:14] VITALS: BP 109/78; PULSE 65; RESP 20; TEMP 36.1; O2SAT 98; BMI 18.1
[2023-06-22 22:43] LABS: Hematocrit 34.2 % (37.0-47.0); Hemoglobin 10.8 g/dl (12.0-16.0); Mean Corpuscular HGB Conc 31.6 g/dl (31.0-35.0); Mean Corpuscular Hemoglobin 26.9 pg (27.0-33.0); Mean Corpuscular Volume 85.3 fL (80.0-98.0); Mean Platelet Volume 10.5 fL (9.4-12.3); Platelet Count 137 X10*3/uL (160-400); Red Blood Count 4.01 X10*6/uL (4.20-5.50); Red Cell Distribution Width 13.2 % (11.0-16.0)
[2023-06-22 22:47] LABS: Appearance Urine Turbid; Color Urine Yellow; Glucose Urine UA Negative (Negative); Leukocyte Esterase Urine Large (3+) (Negative); Nitrite Urine Negative (Negative); PH 6.5 (5.0-9.0); Specific Gravity - Urine 1.025 (1.005-1.025); UMIC TRIGGER UACC YES; Urine Blood Small (1+) (Negative); Urine Ketones Negative (Negative); Urine Protein 30 (1+) mg/dL (Neg-Trace)
[2023-06-22 22:52] LABS: Bacteria Urine None Seen (None Seen); Hyaline Casts Urine 0-2 /LPF (0-2); RBC Urine >20 /HPF (0-2); Squamous Epithelial Cell Urine 0-2 /HPF (0-2); UACC Culture Trigger YES; WBC Urine >50 /HPF (0-5)
[2023-06-22 22:54] LABS: Alanine Aminotransferase 14 U/L (0-31); Albumin Level 4.2 g/dL (3.5-5.0); Alkaline Phosphatase 41 U/L (39-117); Anion Gap 12 (12-20); Aspartate Amino Transferase 18 U/L (5-31); Bilirubin Total 0.4 mg/dL (0.0-1.0); Blood Urea Nitrogen 12 mg/dL (9-16); Calcium 9.1 mg/dL (8.4-10.2); Carbon Dioxide 20 mmol/L (22-29); Chloride 110 mmol/L (96-108); Creatinine Clr Calc Pharmacy 73.3; Estimated Glomerular Filt Rate > 60; Glucose Random 96 mg/dL (60-115); Sodium 139 mmol/L (135-145); Total Protein 7.5 g/dL (6.5-8.0)
[2023-06-22 23:09] LABS: Amphetamine Screen Urine Not Detected (Not Detect); Barbiturates, Urine Not Detected (Not Detect); Benzodiazepines Screen Urine Not Detected (Not Detect); Cannabinoid Screen Urine POSITIVE (Not Detect); Cocaine Screen Urine POSITIVE (Not Detect); Fentanyl, urine Not Detected (Not Detect); Opiate Screen Urine Not Detected (Not Detect); Phencyclidine Screen Urine POSITIVE (Not Detect)
[2023-06-22 23:31] VITALS: BP 120/86; PULSE 68; RESP 18; O2SAT 100
--- NOTE | 2023-06-22 23:40 | PC.NURSE ---
Assumed care of pt. Pt with odd affect, slurring speech, diffuse complaints. Endorses using marijuana, denies other drug use, urine tox shows otherwise. VSS.
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
--- NOTE | 2023-06-22 23:43 | ED.GENADULT ---
HPI - General Adult General Chief complaint: General Medical Stated complaint: std screening/ burning itchy odor Time Seen by Provider: 06/22/23 23:43 Source: patient Mode of arrival: ambulatory Limitations: no limitations History of Present Illness HPI narrative: 33-year-old female who presents emergency department for evaluation of dysuria, abdominal pain, weakness, loss of appetite. Patient states that she has been having dysuria and frequency for 1 month but it is worse over the last several days. She states she is having abdominal pain and points to her suprapubic area when asked to localize the pain. She states she has had no appetite. She denied fever, chills, back, nausea, vomiting. She states that she believes that she has urinary tract infection she has had these in the past. She denies any vaginal discharge. Related Data Previous Rx's Medication Instructions Recorded clindamycin HCl 300 mg capsule 300 mg PO BID 7 days #14 caps 01/14/21 hydroxyzine HCl 25 mg tablet 25 mg PO TID PRN anxiety #30 tabs 08/01/21 acetaminophen 500 mg capsule 500 mg PO Q6H PRN fever or pain 11/14/22 #20 caps oseltamivir 75 mg capsule (Tamiflu) 75 mg PO Q12H 5 days #10 caps 11/14/22 cefuroxime axetil 500 mg tablet 250 mg PO Q12H 5 days #5 tabs 06/23/23 phenazopyridine 200 mg tablet 200 mg PO TID PRN Burning with 06/23/23 (Pyridium) urination 3 days #9 tabs Allergies Allergy/AdvReac Type Severity Reaction Status Date / Time ibuprofen [IBUPROFEN] Allergy Mild HIVES Verified 06/23/23 00:09 Penicillins Allergy Unknown HIVES Verified 06/23/23 00:09 sulfamethoxazole Allergy Unknown RASH Verified 06/23/23 00:09 [From Bactrim] trimethoprim [From Bactrim] Allergy Unknown RASH Verified 06/23/23 00:09 vancomycin [From Vancocin] Allergy Unknown Rash Verified 06/23/23 00:09 Review of Systems Review of Systems: Yes all other systems are reviewed and are negative [facility] Past Medical History [facility] Narrative: Past medical history: Anxiety, substance use disorder. Social history: She denies tobacco, alcohol and drug use. Medical History Anxiety Substance abuse Substance abuse Surgical History History of hysterectomy Social History Social History Alcohol intake: never Smoked in Last 30 Days: Yes Use of substances other than those prescribed or required for medical reasons: Yes Substance Use Type: Marijuana Substance Use Frequency: Chronic Longstanding Advance Directives: No Advance Directives Information Provided: No Patient : No Physical Exam ED Vital Signs: Vital Signs - 24 hr 06/22/23 22:14 06/22/23 23:31 Temperature 97 F Pulse Rate 65 68 Respiratory Rate 20 18 Blood Pressure 109/78 120/86 Pulse Oximetry 98 100 Oxygen Delivery Method Room Air BMI result Body Mass Index 18.1 Vital signs were normal General: Awake, alert, female patient, pleasant, cooperative in no distress, low BMI 18.1 HEENT: Head normal cephalic atraumatic, pupils equal round reactive light, sclera contact however normal, mouth moist membranes Neck: Supple Lungs: Clear to auscultation breath sounds symmetric bilaterally Heart: Regular rate rhythm, normal S1-S2 no murmurs rubs gallops Abdomen: Soft, mild to moderate suprapubic tenderness, no rebound, no voluntary or involuntary guarding Back: No CVA tenderness Extremities: Normal Neuro: Nonfocal Medical Decision Making Medical Decision Making MDM Narrative: 33-year-old female who presents emergency department for evaluation of frequency, urgency, dysuria, abdominal pain. Patient's examination did reveal suprapubic tenderness. Following evaluation was ordered: CBC, CMP, urinalysis, urine tox. 0008: My independent interpretation patient's laboratory evaluation is as follows: Anemia with an H&H of 10 and 34. Thrombocytopenia with a platelet fat 137-these are chronic. Potassium low 3.0 chloride low 110, bicarb low 20. Urinalysis was positive for blood, leukocyte esterase and nitrates. Microscopic revealed greater than 20 RBCs , greater than 50 WBCs, no bacteria. Urine drug screen was positive for cocaine, PCP and marijuana Patient's symptoms are consistent with a urinary tract infection, she does have significant number of WBCs in her urine but no bacteria. Patient will be treated empirically cefuroxime 250 mg b.i.d. x5 days and Pyridium 200 mg 3 times a day as needed for dysuria. She was given her 1st dose of cefuroxime and Pyridium here in the emergency department. She was given printed and verbal instructions discharged home Differential Diagnosis Differential Diagnoses: The differential diagnosis associated with the presentation includes Differential diagnosis includes but is not limited to urinary tract infection, pyelonephritis, viral syndrome Admission/Observation Consideration of admission/observation: Escalation of care including admission/observation considered Lab Data [facility] Lab Attestation statement: I reviewed the patient's lab results. Please see [facility] 06/22/23 22:34 06/22/23 22:34 Labs: Lab Results 06/22/23 06/22/23 06/22/23 Range/Units 22:34 22:34 22:39 WBC 6.0 (4.8-10.8) X10*3/uL RBC 4.01 L (4.20-5.50) X10*6/uL Hgb 10.8 L (12.0-16.0) g/dl Hct 34.2 L (37.0-47.0) % MCV 85.3 (80.0-98.0) fL MCH 26.9 L (27.0-33.0) pg MCHC 31.6 (31.0-35.0) g/dl RDW 13.2 (11.0-16.0) % Plt Count 137 L D (160-400) X10*3/uL MPV 10.5 (9.4-12.3) fL Absolute Nucleated RBC 0.000 (0.0-0.012) X10*3/uL Nucleated RBC % (auto) 0.0 (0.0-0.2) /100WBC Sodium 139 (135-145) mmol/L Potassium 3.0 L D (3.3-5.1) mmol/L Chloride 110 H (96-108) mmol/L Carbon Dioxide 20 L (22-29) mmol/L Anion Gap 12 (12-20) BUN 12 (9-16) mg/dL Creatinine 0.79 (0.5-1.4) mg/dL Estim Creat Clear Calc 73.3 Estimated GFR > 60 Random Glucose 96 (60-115) mg/dL Calcium 9.1 D (8.4-10.2) mg/dL Total Bilirubin 0.4 (0.0-1.0) mg/dL AST 18 (5-31) U/L ALT 14 (0-31) U/L Alkaline Phosphatase 41 (39-117) U/L Total Protein 7.5 (6.5-8.0) g/dL Albumin 4.2 (3.5-5.0) g/dL Urine Color Yellow Urine Appearance Turbid Urine pH 6.5 (5.0-9.0) Ur Specific [place] 1.025 (1.005-1.025) Urine Protein 30 (1+) H (Neg-Trace) mg/dL Urine Glucose (UA) Negative (Negative) mg/dL Urine Ketones Negative (Negative) mg/dL Urine Blood Small (1+) H (Negative) Urine Nitrite Negative (Negative) Ur Leukocyte Esterase Large (3+) H (Negative) Urine RBC >20 H (0-2) /HPF Urine WBC >50 H (0-5) /HPF Urine WBC Clumps Ur Squamous Epith Cells 0-2 (0-2) /HPF Ur Transition Epith Cell Ur Renal Epithelial Cell Calcium Oxalate Crystal Leucine Crystals Cystine Crystals Tyrosine Crystals Other Crystals Urine Bacteria None Seen (None Seen) Urine Parasites Bilirubin Casts Epithelial Casts Fatty Casts Hyaline Casts 0-2 (0-2) /LPF Granular Casts Waxy Casts Broad Casts RBC Casts WBC Casts Other Casts Urine Trichomonas Urine Yeast Urine Opiates Screen (Not Detect) Urine Fentanyl Screen (Not Detect) Ur Barbiturates Screen (Not Detect) Ur Phencyclidine Scrn (Not Detect) Ur Amphetamines Screen (Not Detect) U Benzodiazepines Scrn (Not Detect) Urine Cocaine Screen (Not Detect) U Marijuana (THC) Screen (Not Detect) 06/22/23 06/22/23 Range/Units 22:39 22:39 WBC (4.8-10.8) X10*3/uL RBC (4.20-5.50) X10*6/uL Hgb (12.0-16.0) g/dl Hct (37.0-47.0) % MCV (80.0-98.0) fL MCH (27.0-33.0) pg MCHC (31.0-35.0) g/dl RDW (11.0-16.0) % Plt Count (160-400) X10*3/uL MPV (9.4-12.3) fL Absolute Nucleated RBC (0.0-0.012) X10*3/uL Nucleated RBC % (auto) (0.0-0.2) /100WBC Sodium (135-145) mmol/L Potassium (3.3-5.1) mmol/L Chloride (96-108) mmol/L Carbon Dioxide (22-29) mmol/L Anion Gap (12-20) BUN (9-16) mg/dL Creatinine (0.5-1.4) mg/dL Estim Creat Clear Calc Estimated GFR Random Glucose (60-115) mg/dL Calcium (8.4-10.2) mg/dL Total Bilirubin (0.0-1.0) mg/dL AST (5-31) U/L ALT (0-31) U/L Alkaline Phosphatase (39-117) U/L Total Protein (6.5-8.0) g/dL Albumin (3.5-5.0) g/dL Urine Color Cancelled Urine Appearance Cancelled Urine pH Cancelled (5.0-9.0) Ur Specific [place] Cancelled (1.005-1.025) Urine Protein Cancelled (Neg-Trace) mg/dL Urine Glucose (UA) Cancelled (Negative) mg/dL Urine Ketones Cancelled (Negative) mg/dL Urine Blood Cancelled (Negative) Urine Nitrite Cancelled (Negative) Ur Leukocyte Esterase Cancelled (Negative) Urine RBC Cancelled (0-2) /HPF Urine WBC Cancelled (0-5) /HPF Urine WBC Clumps Cancelled Ur Squamous Epith Cells Cancelled (0-2) /HPF Ur Transition Epith Cell Cancelled Ur Renal Epithelial Cell Cancelled Calcium Oxalate Crystal Cancelled Leucine Crystals Cancelled Cystine Crystals Cancelled Tyrosine Crystals Cancelled Other Crystals Cancelled Urine Bacteria Cancelled (None Seen) Urine Parasites Cancelled Bilirubin Casts Cancelled Epithelial Casts Cancelled Fatty Casts Cancelled Hyaline Casts Cancelled (0-2) /LPF Granular Casts Cancelled Waxy Casts Cancelled Broad Casts Cancelled RBC Casts Cancelled WBC Casts Cancelled Other Casts Cancelled Urine Trichomonas Cancelled Urine Yeast Cancelled Urine Opiates Screen Not Detected (Not Detect) Urine Fentanyl Screen Not Detected (Not Detect) Ur Barbiturates Screen Not Detected (Not Detect) Ur Phencyclidine Scrn POSITIVE H (Not Detect) Ur Amphetamines Screen Not Detected (Not Detect) U Benzodiazepines Scrn Not Detected (Not Detect) Urine Cocaine Screen POSITIVE H (Not Detect) U Marijuana (THC) Screen POSITIVE H (Not Detect) Prescription Management I considered prescription management with: Antibiotic Discharge Plan Discharge Clinical Impression: Urinary tract infection Qualifiers: Urinary tract infection type: acute cystitis Patient Disposition: Home, Self-Care Instructions: Urinary Tract Infection in Women (ED) Additional Instructions: Your urine is consistent with a urinary tract infection Take cefuroxime 250 mg pills, 1 pill every 12 hours for 5 days. Make sure you finish all of the antibiotics. Take Pyridium 200 mg pills, 1 pill every 6 hours as needed for painful urination, burning with urination Follow-up with your doctor in 2 days. Please return to the emergency department if your symptoms get worse or if you develop any symptoms that are concerning to you. Prescriptions: New phenazopyridine [Pyridium] 200 mg tablet 200 mg PO TID PRN (Reason: Burning with urination) 3 Days Qty: 9 0RF cefuroxime axetil 500 mg tablet 250 mg PO Q12H 5 Days Qty: 5 0RF No Action clindamycin HCl 300 mg capsule 300 mg PO BID 7 Days Qty: 14 0RF hydroxyzine HCl 25 mg tablet 25 mg PO TID PRN (Reason: anxiety) Qty: 30 1RF oseltamivir [Tamiflu] 75 mg capsule 75 mg PO Q12H 5 Days Qty: 10 0RF acetaminophen 500 mg capsule 500 mg PO Q6H PRN (Reason: fever or pain) Qty: 20 0RF
[2023-06-23] MEDS: Phenazopyridine HCL 200 MG TABLET PO (00:12)
== END 2023-06-23 00:17 | disposition home or self-care (01) ==
PROVIDERS: Emergency Provider Emergency Medicine Emergency Medical Services
DX: N30.00 Acute cystitis without hematuria (principal); R35.0 Frequency of micturition; R30.0 Dysuria; Z79.899 Other long term (current) drug therapy; Z20.2 Contact with and (suspected) exposure to infections with a predominantly sexual mode of transmission
CPT/HCPCS: 36415; 80053; 80307; 81001; 85027; 87086; 87088; 87186; 99284

== ENCOUNTER 2024-05-03 21:24 | Emergency (ER) | payer MEDICAID, SELFPAY ==
[2024-05-03 21:56] VITALS: BP 115/66; PULSE 72; RESP 181; TEMP 36.6; O2SAT 100; BMI 18.1
[2024-05-03 22:27] LABS: IDNOW Serial# 58CA691E; Strep A Nucleic Acid Negative (Negative)
[2024-05-03 22:56] LABS: Influenza A PCR NEGATIVE (Negative); Influenza B PCR NEGATIVE (Negative); Resp Syncy Virus RNA Qual PCR NEGATIVE (Negative); SARS COV2 PCR INHOUSE NEGATIVE (Negative)
--- OUTSIDE RECORDS SUMMARY | 2024-05-04 00:06 | XMS_ITS | Continuity of Care Document ---
Author Organization [facility] Address [address], [address] [place] [address]- Care Team Providers Care Food Service Supervisor Name Role Phone Not on Staff, PCP Primary Care Physician Unavail able [place] [facility] [place] [facility] [address], [address] [place] [address]- Attending Physician: Not on Staff, Attending MD Referring Physician: Ana Rosa Lai Allergies, Adverse Reactions, Alerts Substance Reaction Severity [...] 0 Refills, Soft Stop, 06/20/22 14:24:00 EDT, [facility], Partial fill upon patient request [...] placental abruption @ 32 weeks Confirmed Active Social History Social History Type Response Smoking Status Never smoker entered on: 09/03/17 Sex Patient Care team information Care Team Personnel Name: Brittany Zarco RN Position: S OB RN Member Role: Primary Care Nurse Name: Not on Staff, PCP Position: S Physician (General Medicine) Member Role: PCP Care Team Related Persons Name: GORDONCHELEBEN Address: [address] [address] Name: BRIGHT LARSON Address: [address] [address]
--- OUTSIDE RECORDS SUMMARY | 2024-05-04 00:07 | XMS_ITS | Continuity of Care Document ---
Author Organization [facility] Address [address], [address] [place] [address]- Care Team Providers Care Quarry Supervisor Open Pit Name Role Phone Not on Staff, PCP Primary Care Physician Unavail able [place] [facility] [place]16[place]23 - 08/15/23 [facility] [address], [address] [place] [address]- Attending Physician: Rose Liao Admitting Physician: Rose Liao Referring Physician: AdmRose liang Allergies, Adverse Reactions, Alerts Substance Reaction Severity [...] 0 Refills, Soft Stop, 06/20/22 14:24:00 EDT, [facility], Partial fill upon patient request [...] Status Never smoker entered on: 09/03/17 Sex Laboratory * Event Display: Non BH Lab Results Authored Date: Patient Care team information Care Team Personnel Name: Brittany Zarco RN Position: [facility] OB RN Member Role: Primary Care Nurse Name: Not on Staff, PCP Position: [facility] Physician (General Medicine) Member Role: PCP Care Team Related Persons Name: BEN GORDON Address: [address] [address] Name: BRIGHT LARSON Address: [address] [address]
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
[2024-05-04 00:30] VITALS: BP 116/57; PULSE 72; RESP 20; TEMP 36.7; O2SAT 100
[2024-05-04 00:43] VITALS: BP 110/55; PULSE 68; RESP 20; TEMP 36.6; O2SAT 97
[2024-05-04] MEDS: Albuterol Sulfate 90 MCG 8 GM INHALER 2 PUFF INHALE (01:13)
== END 2024-05-04 00:43 | disposition home or self-care (01) ==
PROVIDERS: Emergency Provider Student in an Organized Health Care Education/Training Program
DX: B34.9 Viral infection, unspecified (principal); R09.89 Other specified symptoms and signs involving the circulatory and respiratory systems; R05.9 Cough, unspecified; Z03.818 Encounter for observation for suspected exposure to other biological agents ruled out
CPT/HCPCS: 0241U; 87651; 99283; 99284

== ENCOUNTER 2024-06-02 03:31 | Emergency (ER) | payer MEDICAID, OTHER, SELFPAY ==
--- NOTE | 2024-06-02 | ECG_ITS ---
Test Reason : ANXITY Blood Pressure : / mmHG Vent. Rate : 090 BPM Atrial Rate : 090 BPM P-R Int : 116 ms QRS Dur : 078 ms QT Int : 346 ms P-R-T Axes : -25 084 027 degrees QTc Int : 423 ms Normal sinus rhythm Normal ECG When compared with ECG of 04-MAY-2023 02:04, No significant change was found Referred By: Generic ED Physician Electronically Signed By:Rosas Alaniz
[2024-06-02 03:37] VITALS: PULSE 117; RESP 20; TEMP 36.6; O2SAT 95; BMI 20.6
[2024-06-02 04:08] LABS: Basophils Percent Auto 0.4 % (0-2); Eosinophils Absolute Auto 0.2 X10*3/uL (0.0-0.4); Eosinophils Percent Auto 3.2 % (0-4); Hematocrit 35.4 % (37.0-47.0); Hemoglobin 11.7 g/dl (12.0-16.0); Imm Gran Abs Auto 0.01 X10*3/uL (0.00-0.03); Imm Gran Pct Auto 0.1 % (0.0-0.4); Lymphocytes Absolute Auto 2.9 X10*3/uL (1.2-4.9); MANUAL DIFF FLAG NO; Mean Corpuscular HGB Conc 33.1 g/dl (31.0-35.0); Mean Corpuscular Hemoglobin 27.2 pg (27.0-33.0); Mean Corpuscular Volume 82.3 fL (80.0-98.0); Mean Platelet Volume 9.2 fL (9.4-12.3); Monocytes Absolute Auto 0.7 X10*3/uL (0.1-1.2); Monocytes Percent Auto 10.5 % (2-11); Neutrophils Percent Auto 43.8 % (45-73); Platelet Count 172 X10*3/uL (160-400); Red Cell Distribution Width 13.2 % (11.0-16.0); White Blood Count 6.9 X10*3/uL (4.8-10.8)
[2024-06-02 04:24] LABS: Alanine Aminotransferase 11 U/L (0-31); Albumin Level 4.4 g/dL (3.5-5.0); Alkaline Phosphatase 50 U/L (39-117); Anion Gap 13 (12-20); Aspartate Amino Transferase 14 U/L (5-31); Bilirubin Total 0.5 mg/dL (0.0-1.0); Blood Urea Nitrogen 8 mg/dL (9-16); Calcium 9.5 mg/dL (8.4-10.2); Carbon Dioxide 23 mmol/L (22-29); Chloride 108 mmol/L (96-108); Creatinine Clr Calc Pharmacy 87.8; Estimated Glomerular Filt Rate > 60; Glucose Random 91 mg/dL (60-115); Potassium 3.5 mmol/L (3.3-5.1); Sodium 140 mmol/L (135-145); Total Protein 7.6 g/dL (6.5-8.0)
[2024-06-02 04:45] VITALS: BP 111/79; PULSE 88; RESP 15; O2SAT 97
[2024-06-02 05:17] LABS: Appearance Urine Cloudy; Color Urine Yellow; Glucose Urine UA Negative (Negative); Leukocyte Esterase Urine Small (1+) (Negative); Nitrite Urine Positive (Negative); PH 6.5 (5.0-9.0); Specific Gravity - Urine 1.015 (1.005-1.025); UMIC TRIGGER UACC YES; Urine Blood Negative (Negative); Urine Ketones Negative (Negative); Urine Protein Negative (Neg-Trace)
[2024-06-02 05:19] LABS: Bacteria Urine 4+ (None Seen); Hyaline Casts Urine 0-2 /LPF (0-2); RBC Urine 0-2 /HPF (0-2); UACC Culture Trigger YES
[2024-06-02 05:31] LABS: Amphetamine Screen Urine Not Detected (Not Detect); Barbiturates, Urine Not Detected (Not Detect); Benzodiazepines Screen Urine Not Detected (Not Detect); Buprenorphine Scr Not Detected (Not Detect); Cannabinoid Screen Urine POSITIVE (Not Detect); Cocaine Screen Urine POSITIVE (Not Detect); Fentanyl, urine Not Detected (Not Detect); Methadone Screen, Urine Not Detected (Not Detect); Opiate Screen Urine Not Detected (Not Detect); Oxycodone Screen Urine Not Detected (Not Detect); Phencyclidine Screen Urine POSITIVE (Not Detect)
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
--- NOTE | 2024-06-02 07:31 | PC.NURSE ---
Resumed care of pt at 0700. A/ox4, resting in bed quietly, call elise within reach, pt aware of plan of care
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
[2024-06-02 08:30] VITALS: BP 105/74; PULSE 62; RESP 18; TEMP 36.4; O2SAT 100
--- NOTE | 2024-06-02 08:50 | PC.NURSE ---
This RN went into patient room at 0830 to discuss with patient if she wanted a SANE kit as when the MD went in to talk with patient she did not want to bring it up with him. This RN explained that having a SANE nurse to come in is a separate part of medical care from the care team. Pt alerted this RN that she understood and wanted the nurse to come and do a kit. This RN alerted the MD and Charge nurse, pt is medically cleared at this time. YVETTE paged at 0840, advocate called for directly after. Yvette nurse returned call and stated she would be here within 30 minutes and to hold off on any more lab work and vaginal exams. Pt moved to room 7, SANE care and pelvic stretcher brought to room. Pt is still wearing all of her cloths, and has not showered at this time. Pt given an update on situation at this time she is in agreement with plan.
--- NOTE | 2024-06-02 09:19 | PC.NURSE ---
Transferred to ED 7, patient aware sane nurse is on her way.
--- NOTE | 2024-06-02 10:40 | PC.NURSE ---
Per sane nurse patient unable to participate in SANE exam. States that patient repeatedly asking about seeing crisis and stating she is depressed. Provider aware . Patient provided with food and fluids
--- NOTE | 2024-06-02 12:02 | PC.NURSE ---
Discharge plan reviewed with patient who verbalized understanding. Patient removed [facility] resource packet and showed this RN highlighted number stating she will call later today
[2024-06-02 12:03] VITALS: BP 105/74; PULSE 65; RESP 18; TEMP 36.4; O2SAT 97
--- NOTE | 2024-06-02 20:48 | MHC.CARE ---
RAD Team faxed referral for PHP for this pt. RAD Team will follow up tomorrow
== END 2024-06-02 12:04 | disposition home or self-care (01) ==
PROVIDERS: Emergency Provider Emergency Medicine
DX: F43.0 Acute stress reaction (principal); F41.1 Generalized anxiety disorder; F16.10 Hallucinogen abuse, uncomplicated; F14.10 Cocaine abuse, uncomplicated; Z79.899 Other long term (current) drug therapy; Z71.51 Drug abuse counseling and surveillance of drug abuser
CPT/HCPCS: 36415; 80053; 80307; 81001; 85025; 87086; 87088; 87186; 93005; 99285; S9485

== ENCOUNTER → 2024-06-02 03:45 | Outpatient (BNV) | payer MEDICAID, SELFPAY | PROVIDERS: Emergency Provider Emergency Medicine; Visit Provider Internal Medicine Cardiovascular Disease | DX: F41.9 Anxiety disorder, unspecified (principal) | CPT/HCPCS: 93010 ==

== ENCOUNTER 2024-06-13 19:54 | Emergency (ER) | payer MEDICAID, SELFPAY ==
[2024-06-13 20:01] VITALS: BP 116/78; PULSE 85; RESP 17; TEMP 37.2; O2SAT 98; BMI 15.7
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
--- NOTE | 2024-06-13 21:08 | MHC.EDTECH ---
pt belongings placed in POD Locker #7 by security.
[2024-06-13 21:21] LABS: MANUAL DIFF FLAG NO
[2024-06-13 21:22] LABS: Basophils Absolute Auto 0.1 X10*3/uL (0.0-0.2); Basophils Percent Auto 0.9 % (0-2); Eosinophils Absolute Auto 0.2 X10*3/uL (0.0-0.4); Hematocrit 35.4 % (37.0-47.0); Hemoglobin 11.6 g/dl (12.0-16.0); Imm Gran Abs Auto 0.01 X10*3/uL (0.00-0.03); Imm Gran Pct Auto 0.2 % (0.0-0.4); Lymphocytes Absolute Auto 2.3 X10*3/uL (1.2-4.9); Lymphocytes Percent Auto 35.3 % (20-40); Mean Corpuscular HGB Conc 32.8 g/dl (31.0-35.0); Mean Corpuscular Hemoglobin 27.4 pg (27.0-33.0); Mean Corpuscular Volume 83.5 fL (80.0-98.0); Monocytes Absolute Auto 0.6 X10*3/uL (0.1-1.2); Monocytes Percent Auto 9.8 % (2-11); Neutrophils Absolute Auto 3.3 x10*3/uL (2.0-8.3); Neutrophils Percent Auto 50.8 % (45-73); Platelet Count 204 X10*3/uL (160-400); Red Blood Count 4.24 X10*6/uL (4.20-5.50); Red Cell Distribution Width 13.5 % (11.0-16.0); White Blood Count 6.4 X10*3/uL (4.8-10.8)
[2024-06-13 21:37] LABS: Alanine Aminotransferase 19 U/L (0-31); Albumin Level 4.3 g/dL (3.5-5.0); Alkaline Phosphatase 49 U/L (39-117); Anion Gap 14 (12-20); Aspartate Amino Transferase 17 U/L (5-31); Bilirubin Direct 0.2 mg/dL (0.0-0.5); Bilirubin Total 0.7 mg/dL (0.0-1.0); Blood Urea Nitrogen 12 mg/dL (9-16); Calcium 9.4 mg/dL (8.4-10.2); Carbon Dioxide 24 mmol/L (22-29); Chloride 107 mmol/L (96-108); Estimated Glomerular Filt Rate > 60; Ethanol < 10 mg/dL; Glucose Random 82 mg/dL (60-115); Magnesium 1.9 mg/dL (1.6-2.6); Potassium 3.5 mmol/L (3.3-5.1); Sodium 141 mmol/L (135-145); Total Protein 7.3 g/dL (6.5-8.0)
--- NOTE | 2024-06-13 21:50 | PC.NURSE ---
Patient presents for severe anxiety and depression, denies SI/HI. Patient reports that a provider from [facility] sent her in for admission. Patient changed over into a pod attire, belongings placed into locker 7 in POD. Plan of care ongoing.
[2024-06-13 22:30] VITALS: BP 104/61; PULSE 97; RESP 14; TEMP 36.9; O2SAT 97
--- NOTE | 2024-06-13 22:31 | MHC.EDTECH ---
this tech attempted to obtain urine sample from patient. pt states they are unable to urinate at this time.
[2024-06-14] VITALS (7 sets, daily range): BP systolic 99–112; BP diastolic 51–85; PULSE 54–87; RESP 12–16; TEMP 36.6–36.8; O2SAT 96–100
--- NOTE | 2024-06-14 | ECG_ITS ---
Test Reason : REQUEST BY N Blood Pressure : / mmHG Vent. Rate : 054 BPM Atrial Rate : 091 BPM P-R Int : 000 ms QRS Dur : 084 ms QT Int : 428 ms P-R-T Axes : 000 079 056 degrees QTc Int : 405 ms Artifact in tracing Likely normal sinus rhythm Otherwise normal ECG When compared with ECG of 02-JUN-2024 03:45, decrease in ventricular rate Referred By: Mayur Fortune Electronically Signed By:YASEMIN WATKINS
--- NOTE | 2024-06-14 04:19 | PC.NURSE ---
Patient appears to be sleeping, respirations unlabored, even chest wall rise and fall noted, RR 16. Call elise in patient's reach.
--- NOTE | 2024-06-14 05:27 | PC.NURSE ---
Patient continues to rest in a stretcher bed without distress noted, call elise in patient's reach.
[2024-06-14 08:41] LABS: UPreg QC Valid YES; Urine Pregnancy NEGATIVE (NEGATIVE)
[2024-06-14 08:53] LABS: Amphetamine Screen Urine Not Detected (Not Detect); Barbiturates, Urine Not Detected (Not Detect); Benzodiazepines Screen Urine Not Detected (Not Detect); Buprenorphine Scr Not Detected (Not Detect); Cannabinoid Screen Urine POSITIVE (Not Detect); Cocaine Screen Urine POSITIVE (Not Detect); Fentanyl, urine Not Detected (Not Detect); Methadone Screen, Urine Not Detected (Not Detect); Opiate Screen Urine Not Detected (Not Detect); Oxycodone Screen Urine Not Detected (Not Detect); Phencyclidine Screen Urine POSITIVE (Not Detect)
--- NOTE | 2024-06-14 13:38 | PC.NURSE ---
Report given to RN in Pod.
--- NOTE | 2024-06-14 14:17 | MHC.EDTECH ---
Addendum entered by Mary Alice Patino 06/14/24 14:23: MD soriano Original Note: Patient refuse EKG ,while putting in leads on patient removed them and ran to bathroom and try to lock her self in there.
== END 2024-06-14 14:52 | disposition still patient (30) ==
PROVIDERS: Emergency Provider Emergency Medicine
DX: F16.180 Hallucinogen abuse with hallucinogen-induced anxiety disorder (principal); F33.1 Major depressive disorder, recurrent, moderate; R94.31 Abnormal electrocardiogram [ECG] [EKG]; Z79.899 Other long term (current) drug therapy
CPT/HCPCS: 36415; 80048; 80076; 80307; 81025; 83735; 85025; 93005; 99285; S9485

== ENCOUNTER → 2024-06-14 13:59 | Outpatient (BNV) | payer MEDICAID, SELFPAY | PROVIDERS: Emergency Provider Emergency Medicine; Visit Provider Internal Medicine | DX: R94.31 Abnormal electrocardiogram [ECG] [EKG] (principal) | CPT/HCPCS: 93010 ==

== ENCOUNTER 2024-08-24 13:40 | Emergency (ER) | payer MEDICAID, SELFPAY ==
[2024-08-24 14:09] VITALS: BP 125/91; PULSE 83; RESP 18; TEMP 36.9; O2SAT 99; BMI 17.5
--- NOTE | 2024-08-24 14:11 | ECG_ITS ---
Test Reason : pain Blood Pressure : / mmHG Vent. Rate : 065 BPM Atrial Rate : 065 BPM P-R Int : 120 ms QRS Dur : 074 ms QT Int : 374 ms P-R-T Axes : 038 084 058 degrees QTc Int : 388 ms Normal sinus rhythm Normal ECG When compared with ECG of 14-JUN-2024 13:59, No significant change was found Referred By: Aramis Medrano Electronically Signed By:ULI LANE
--- NOTE | 2024-08-24 14:11 | ED_ITS ---
HPI - General Adult General Stated complaint: L shoulder injury Related Data Allergies Allergy/AdvReac Type Severity Reaction Status Date / Time ibuprofen [IBUPROFEN] Allergy Mild HIVES Verified 08/24/24 14:11 Penicillins Allergy Unknown HIVES Verified 08/24/24 14:11 sulfamethoxazole Allergy Unknown RASH Verified 08/24/24 14:11 [From Bactrim] trimethoprim [From Bactrim] Allergy Unknown RASH Verified 08/24/24 14:11 vancomycin [From Vancocin] Allergy Unknown Rash Verified 08/24/24 14:11 PMFSH Past Medical History Medical History Substance abuse Substance abuse Anxiety Surgical History History of hysterectomy Social History Social History Alcohol intake: former Patient Tobacco Use Status: Current someday Tobacco user Substance Use Type: Marijuana Course Course Course Narrative: RME, this is a rapid medical exam performed by Eulalio Medrano please refer to primary provider for complete H&P- 34 year old female presents for evaluation of left sided body pain including chest pain. She reports that she is very depressed, but not suicidal. Plan for medical workup and possible care team consult Discharge Plan Discharge Print Language: Ukrainian
[2024-08-24 14:35] LABS: MANUAL DIFF FLAG NO
[2024-08-24 14:39] LABS: Basophils Absolute Auto 0.1 X10*3/uL (0.0-0.2); Basophils Percent Auto 0.8 % (0-2); Eosinophils Absolute Auto 0.3 X10*3/uL (0.0-0.4); Eosinophils Percent Auto 3.6 % (0-4); Hematocrit 37.5 % (37.0-47.0); Hemoglobin 11.9 g/dl (12.0-16.0); Imm Gran Abs Auto 0.01 X10*3/uL (0.00-0.03); Imm Gran Pct Auto 0.1 % (0.0-0.4); Lymphocytes Absolute Auto 2.7 X10*3/uL (1.2-4.9); Lymphocytes Percent Auto 34.5 % (20-40); Mean Corpuscular HGB Conc 31.7 g/dl (31.0-35.0); Mean Corpuscular Hemoglobin 26.8 pg (27.0-33.0); Mean Corpuscular Volume 84.5 fL (80.0-98.0); Mean Platelet Volume 10.4 fL (9.4-12.3); Monocytes Absolute Auto 0.7 X10*3/uL (0.1-1.2); Monocytes Percent Auto 8.5 % (2-11); Neutrophils Percent Auto 52.5 % (45-73); Platelet Count 184 X10*3/uL (160-400); Red Blood Count 4.44 X10*6/uL (4.20-5.50); Red Cell Distribution Width 13.2 % (11.0-16.0); White Blood Count 7.7 X10*3/uL (4.8-10.8)
[2024-08-24 14:41] LABS: Appearance Urine Cloudy; Color Urine Yellow; Glucose Urine UA Negative (Negative); Leukocyte Esterase Urine Trace (Negative); Nitrite Urine Positive (Negative); Specific Gravity - Urine 1.025 (1.005-1.025); UMIC TRIGGER UACC YES; Urine Blood Negative (Negative); Urine Ketones Trace mg/dL (Negative); Urine Protein Negative (Neg-Trace)
[2024-08-24 14:50] LABS: Amphetamine Screen Urine Not Detected (Not Detect); Barbiturates, Urine Not Detected (Not Detect); Benzodiazepines Screen Urine Not Detected (Not Detect); Buprenorphine Scr Not Detected (Not Detect); Cannabinoid Screen Urine POSITIVE (Not Detect); Cocaine Screen Urine Not Detected (Not Detect); Fentanyl, urine Not Detected (Not Detect); Methadone Screen, Urine Not Detected (Not Detect); Opiate Screen Urine Not Detected (Not Detect); Oxycodone Screen Urine Not Detected (Not Detect); Phencyclidine Screen Urine POSITIVE (Not Detect)
[2024-08-24 15:03] LABS: Alanine Aminotransferase 13 U/L (0-31); Albumin Level 4.3 g/dL (3.5-5.0); Alkaline Phosphatase 46 U/L (39-117); Anion Gap 10 (12-20); Aspartate Amino Transferase 14 U/L (5-31); Bilirubin Total 0.2 mg/dL (0.0-1.0); Blood Urea Nitrogen 14 mg/dL (9-16); Calcium 9.1 mg/dL (8.4-10.2); Carbon Dioxide 27 mmol/L (22-29); Chloride 107 mmol/L (96-108); Creatinine Clr Calc Pharmacy 72.8; Estimated Glomerular Filt Rate > 60; Ethanol < 10 mg/dL; Glucose Random 64 mg/dL (60-115); HCG Quantitative < 2 mIU/mL; Lipase 25 U/L (8-78); Potassium 3.4 mmol/L (3.3-5.1); Sodium 141 mmol/L (135-145); Total Protein 7.6 g/dL (6.5-8.0)
[2024-08-24 15:05] LABS: Troponin-I High Sensitivity < 2.7 ng/L (<3.5-17.0)
[2024-08-24 15:20] LABS: Bacteria Urine 4+ (None Seen); Hyaline Casts Urine 0-2 /LPF (0-2); RBC Urine 0-2 /HPF (0-2); UACC Culture Trigger YES; WBC Urine 0-5 /HPF (0-5)
== END 2024-08-24 15:14 | disposition left against medical advice (07) ==
PROVIDERS: Physician Assistant; Emergency Provider Emergency Medicine
DX: M25.512 Pain in left shoulder (principal); F32.A Depression, unspecified; F41.9 Anxiety disorder, unspecified; F16.20 Hallucinogen dependence, uncomplicated; F19.10 Other psychoactive substance abuse, uncomplicated
CPT/HCPCS: 36415; 80053; 80307; 81001; 83690; 84484; 84702; 85025; 87086; 87088; 87186; 93005; 99281; 99283

== ENCOUNTER 2025-01-13 08:40 | Emergency (ER) | payer MEDICAID, SELFPAY ==
[2025-01-13 09:14] VITALS: BP 131/88; PULSE 79; RESP 16; TEMP 36.4; O2SAT 100; BMI 17.8
[2025-01-13 13:51] VITALS: BP 133/75; PULSE 84; RESP 18; TEMP 36.6; O2SAT 98
--- NOTE | 2025-01-13 13:54 | MHC.EDTECH ---
vital signs taken and documented. Patient states feeling very anxious . occup therapist aware
--- NOTE | 2025-01-13 20:57 | ED.PSYCH ---
HPI - Psych General Chief Complaint: Psychiatric Symptoms Stated Complaint: depression Time Seen by Provider: 01/13/25 20:38 Source: patient Mode of arrival: ambulatory Limitations: no limitations History of Present Illness ED Provider: Dr. Garfield East HPI Narrative: 34-year-old female with a history of anxiety, substance use disorder who presents emergency department for evaluation of increased depression x1 month, decreased appetite, no suicidal ideation or homicidal ideation, states she was seeing a crisis counselor with no improvement of her symptoms. Requesting care team evaluation. Patient states she has been depressed for proximally 1 month. She states she was feeling sad, depressed and anxious. She states she was had a decreased appetite and believes that she was lost weight but can not quantify how much weight she was lost. She states she has been getting in arguments with her landlord. She does have a crisis counselor that she sees every Friday at [facility]. She states that the crisis counselor recommended that she go to the emergency department for evaluation. Patient does denied being suicidal or homicidal. She denied being ill in any way. Patient was not take any medications for depression or anxiety. Related Data Home Medications ?Medication ?Instructions ?Recorded ?Confirmed No Known Home Meds 01/13/25 01/13/25 Allergies Allergy/AdvReac Type Severity Reaction Status Date / Time ibuprofen [IBUPROFEN] Allergy Mild HIVES Verified 01/13/25 09:14 Penicillins Allergy Unknown HIVES Verified 01/13/25 09:14 sulfamethoxazole Allergy Unknown RASH Verified 01/13/25 09:14 [From Bactrim] trimethoprim [From Bactrim] Allergy Unknown RASH Verified 01/13/25 09:14 vancomycin [From Vancocin] Allergy Unknown Rash Verified 01/13/25 09:14 Review of Systems Review of Systems: Yes all other systems are reviewed and are negative [facility] Past Medical History [facility] Narrative: Social history: Patient does smoke cigarettes. She denies alcohol and tobacco use. Medical History Substance abuse Substance abuse Anxiety Surgical History History of hysterectomy Social History Social History Alcohol intake: former Patient Tobacco Use Status: Current someday Tobacco user Substance Use Type: Marijuana Advance Directives: No Advance Directives Information Provided: Yes Do you have a plan to hurt others: No Plan Physical Exam Vital Signs: Vital Signs: Last Vital Signs Temp 98.8 F 01/14/25 08:28 Pulse 86 01/14/25 08:28 Resp 18 01/14/25 08:28 BP 114/78 01/14/25 08:28 Pulse Ox 94 01/14/25 08:28 O2 Del Method Room Air 01/14/25 08:28 BMI result Body Mass Index 17.8 Vital signs were normal Exam: General: Awake, alert in no distress, weight 45.6 kg, low BMI 17.8 kg per m2 Head: Normocephalic, atraumatic EENT: PERRL, Lids normal, sclera normal, conjunctiva normal, nose normal , ears normal, throat without erythema or exudates Neck: Supple, no adenopathy Lung: breath sounds symmetric, no wheezing, rales or rhonchi Chest: symmetric movement, nontender Heart: regular rate and rhythm, normal S1, S2 no murmurs or rubs Abdomen: soft, non-tender, nondistended, normal bowel sounds Back: no vertebral tenderness, no CVAT Extremities: no deformities, moves all extremities symmetrically Neuro: Awake, alert, oriented, normal speech, cranial nerves intact, moves all extremities symmetrically Psych: Pleasant, cooperative Course Reevaluation(s) Reevaluation #1: Patient will be dc home w/ referall to partial program. No si or HI. Safetly plan in place. I agree w/ this plan. Time: 08:29 Medical Decision Making Medical Decision Making MDM Narrative: 34-year-old female with a history of anxiety, substance use disorder who presents emergency department for evaluation of increased depression x1 month, decreased appetite, unspecified amount of weight loss, no suicidal ideation or homicidal ideation, states she was seeing a crisis counselor with no improvement of her symptoms. She denied drug and alcohol use. She does have a counselor [facility] that she sees weekly and she was advised to go to the emergency department by her counselor for further evaluation. Patient was not take any medications for her depression or anxiety. Physical examination was unremarkable. Differential diagnosis: ?Includes but is not limited to depression, anxiety, anorexia Course: 21:40 Laboratory evaluation including CBC, CMP, ethanol level, urine drug screen, urinalysis and and urine test were ordered and these are pending. I also ordered a care team consult on this patient.Patient will remain in the emergency department Behavioral Health Unit until disposition can be determined or until patient's symptoms improve over time. 22:26 Start physician observation: My independent interpretation patient's laboratory evaluation as follows: CBC was unremarkable. CMP was normal. Ethanol was below detectable limits. Patient was medically cleared for care team evaluation.Patient will remain in the emergency department Behavioral Health Unit until disposition can be determined or until patient's symptoms improve over time. 06/13/2025 at 07:03 Continue physician observation Patient was waiting to be evaluated by care team. At the end of my shift, patient's care was turned over to my colleague, Dr. Almaraz Admission/Observation Consideration of admission/observation: Escalation of care including admission/observation considered (Yes) Lab Data MDM Lab Attestation statement: I reviewed the patient's lab results. 01/13/25 21:41 01/13/25 21:41 Labs: Lab Results 01/13/25 Range/Units 21:41 WBC 11.5 H (4.8-10.8) X10*3/uL RBC 4.58 (4.20-5.50) X10*6/uL Hgb 12.2 (12.0-16.0) g/dl Hct 37.7 (37.0-47.0) % MCV 82.3 (80.0-98.0) fL MCH 26.6 L (27.0-33.0) pg MCHC 32.4 (31.0-35.0) g/dl RDW 13.5 (11.0-16.0) % Plt Count 193 (160-400) X10*3/uL MPV 9.6 (9.4-12.3) fL Immature Gran % (Auto) 0.3 (0.0-0.4) % Neut % (Auto) 65.1 (45-73) % Lymph % (Auto) 24.4 (20-40) % [place] % (Auto) 8.0 (2-11) % Eos % (Auto) 1.8 (0-4) % Baso % (Auto) 0.4 (0-2) % Lymph # (Auto) 2.8 (1.2-4.9) X10*3/uL [place] # (Auto) 0.9 (0.1-1.2) X10*3/uL Eos # (Auto) 0.2 (0.0-0.4) X10*3/uL Baso # (Auto) 0.1 (0.0-0.2) X10*3/uL Abs Immat Gran (auto) 0.04 H (0.00-0.03) X10*3/uL Absolute Neuts (auto) 7.4 (2.0-8.3) x10*3/uL Absolute Nucleated RBC 0.000 (0.0-0.012) X10*3/uL Nucleated RBC % (auto) 0.0 (0.0-0.2) /100WBC Sodium 138 (135-145) mmol/L Potassium 3.7 (3.3-5.1) mmol/L Chloride 106 (96-108) mmol/L Carbon Dioxide 22 (22-29) mmol/L Anion Gap 14 (12-20) BUN 14 (9-16) mg/dL Creatinine 0.72 (0.5-1.4) mg/dL Estim Creat Clear Calc 80.8 Estimated GFR > 60 Random Glucose 84 (60-115) mg/dL Calcium 9.7 D (8.4-10.2) mg/dL Total Bilirubin 0.5 (0.0-1.0) mg/dL AST 22 (5-31) U/L ALT 15 (0-31) U/L Alkaline Phosphatase 59 (39-117) U/L Total Protein 8.8 H (6.5-8.0) g/dL Albumin 4.6 (3.5-5.0) g/dL Ethyl Alcohol < 10 mg/dL Discharge Plan Discharge Clinical Impression: Depression Patient Disposition: Home, Self-Care Instructions: Depression (ED) Additional Instructions: Take your medications as prescribed. If you were prescribed antibiotics today, it is important that you take your medication to their entirety, do not skip any doses, do not finish them early. Follow-up with your primary care provider this week. Return to the emergency department with new or worsening symptoms. Such as fevers, chills, chest pain, shortness of breath, nausea, vomiting, dizziness, headache, vision changes, lethargy In case of emergency call 911 Prescriptions: No Action No Known Home Meds Referrals: [facility] [Primary Care Provider] - 2 days Stand Alone Forms: Work/School Release Interventions: Lamar-Suicide Risk Severity Scale Last Done: 01/14/25 06:29 Print Language: Beninese
--- OUTSIDE RECORDS SUMMARY | 2025-01-13 21:04 | XMS_ITS | Encounter Summary ---
Author Organization [facility] Address [address] [place] [id number] Phone Care Team Providers Care Heel Builder Name Role Phone Newton Mclean Primary Care Provider [phone] Encounter Details Date Type Department Care Team (Late st Contact Info) Description 07/10/2017 Conversion Encounter [facility] [address] [place] [address] Social History Tobacco Use Types Packs/Day Years Used Date Smoking Tobacco: Never Assessed Comments Unknown Sex and Gender Information Value Date Recorded Sex Assigned at Not on file Legal Sex Female 4:26 PM EDT Gender Identity Not on file Sexual Orientation Not on file documented as of this encounter Plan of Treatment Not on file documented as of this encounter Visit Diagnoses Not on filedocumented in this encounter Care Teams Heel Builder Relationship Specialty Start Date End Date Newton Mclean [address] [place] [address] PCP - General 07/04/17 documented as of this encounter
--- OUTSIDE RECORDS SUMMARY | 2025-01-13 21:04 | XMS_ITS | Encounter Summary ---
Author Organization [facility] Address [address] [place] [address] Phone Care Team Providers Care Draw Tender Name Role Phone Newton Mclean Primary Care Provider [phone] Encounter Details Date Type Department Care Team (Late st Contact Info) Description 05/04/2015 Documentation EM Family Medicine [address] [place] [address] Family Medicine, Physician [address] [place], [place] [id number] Social History Tobacco Use Types Packs/Day Years [...] on filedocumented in this encounter Care Teams Draw Tender Relationship Specialty Start Date End Date Newton Mclean [address] [place] [address] PCP - General 07/04/17 documented as of this encounter
--- OUTSIDE RECORDS SUMMARY | 2025-01-13 21:04 | XMS_ITS | Clinical Summary ---
Author Organization [facility] Address [address] [place] [phone] Phone Care Team Providers Care Front Line Supervisor Name Role Phone Newton Mclean Primary Care Provider [phone] Immunizations Immunization Administration Dates Next Due DTP 01/21/1997, 4,02/21/1993,11/23,1992 Hep B, ped/adol 02/21/1993,1992,1992 Hib (PRP-T) 08/23/1993, 3,1992,07/24 IPV 01/21/1997, 4,1992,07/24 MMR 01/21/1997,08/23/1993 Meningococcal Conj (Menactra) MCV4P 02/13/2006 Td (adult) (MBL), 2 Lf tetan us toxoid, PF, adsorbed 02/09/2004 Varicella 07/27/1999 Social History Tobacco Use Types Packs/Day Years Used Date Smoking Tobacco: Never Assessed Comments Unknown Sex and Gender Information Value Date Recorded Sex Assigned at Not on file Legal Sex Female 4:26 PM EDT Gender Identity Not on file Sexual Orientation Not on file Plan of Treatment Health Maintenance Due Date Last Done Comments Varicella Vaccines (2 of 2 - 2-dose childhood series) 10/19/1999 07/27/1999 DTaP,Tdap,and Td Vaccines (6 - Tdap) 02/10/2004 02/09/2004, 01/21/1997, 01/21/1994, Additional history exists Influenza Vaccines (#1) 2024 COVID-19 Vaccine ( season) 2024 Hepatitis B Vaccines Completed 02/21/1993, 1992, 1992 HIB Vaccines Completed 08/23/1993, 01/24, 1992, Additional history exists IPV Vaccines Completed 01/21/1997, 12/26, 1992, Additional history exists MMR Vaccines Completed 01/21/1997, 08/23/1993 Meningococcal Vaccine Aged Out 02/13/2006 No sindi ann eligible based on patient's age to complete this topic HPV Vaccines Aged Out No longer eligi ble based on patient's age to complete this topic Hepatitis A Vaccines Aged Out No long er eligible based on patient's age to complete this topic Men B Vaccine Aged Out No longer elig ible based on patient's age to complete this topic Pneumococcal Vaccine Aged Out No long er eligible based on patient's age to complete this topic Care Teams Front Line Supervisor Relationship Specialty Start Date End Date Newton Mclean [address] [place] [address] PCP - General 07/04/17
[2025-01-13 21:45] LABS: MANUAL DIFF FLAG NO
[2025-01-13 21:47] LABS: Basophils Absolute Auto 0.1 X10*3/uL (0.0-0.2); Basophils Percent Auto 0.4 % (0-2); Eosinophils Absolute Auto 0.2 X10*3/uL (0.0-0.4); Eosinophils Percent Auto 1.8 % (0-4); Hematocrit 37.7 % (37.0-47.0); Hemoglobin 12.2 g/dl (12.0-16.0); Imm Gran Abs Auto 0.04 X10*3/uL (0.00-0.03); Imm Gran Pct Auto 0.3 % (0.0-0.4); Lymphocytes Absolute Auto 2.8 X10*3/uL (1.2-4.9); Lymphocytes Percent Auto 24.4 % (20-40); Mean Corpuscular HGB Conc 32.4 g/dl (31.0-35.0); Mean Corpuscular Hemoglobin 26.6 pg (27.0-33.0); Mean Corpuscular Volume 82.3 fL (80.0-98.0); Mean Platelet Volume 9.6 fL (9.4-12.3); Monocytes Absolute Auto 0.9 X10*3/uL (0.1-1.2); Neutrophils Absolute Auto 7.4 x10*3/uL (2.0-8.3); Neutrophils Percent Auto 65.1 % (45-73); Platelet Count 193 X10*3/uL (160-400); Red Blood Count 4.58 X10*6/uL (4.20-5.50); Red Cell Distribution Width 13.5 % (11.0-16.0); White Blood Count 11.5 X10*3/uL (4.8-10.8)
[2025-01-13 22:01] LABS: Ethanol < 10 mg/dL
[2025-01-13 22:02] LABS: Alanine Aminotransferase 15 U/L (0-31); Albumin Level 4.6 g/dL (3.5-5.0); Anion Gap 14 (12-20); Aspartate Amino Transferase 22 U/L (5-31); Bilirubin Total 0.5 mg/dL (0.0-1.0); Blood Urea Nitrogen 14 mg/dL (9-16); Calcium 9.7 mg/dL (8.4-10.2); Carbon Dioxide 22 mmol/L (22-29); Chloride 106 mmol/L (96-108); Creatinine Clr Calc Pharmacy 80.8; Estimated Glomerular Filt Rate > 60; Glucose Random 84 mg/dL (60-115); Potassium 3.7 mmol/L (3.3-5.1); Sodium 138 mmol/L (135-145); Total Protein 8.8 g/dL (6.5-8.0)
[2025-01-13 22:12] LABS: Alkaline Phosphatase 59 U/L (39-117)
--- NOTE | 2025-01-14 07:11 | MHC.EDTECH ---
Patient refusing to provide urine sample at this time. Patient is aware that we are waiting for this urine before patient speaks to the care team.
[2025-01-14 08:28] VITALS: BP 114/78; PULSE 86; RESP 18; TEMP 37.1; O2SAT 94
[2025-01-14 09:11] VITALS: BP 114/78; PULSE 86; RESP 18; TEMP 37.1; O2SAT 94
== END 2025-01-14 09:12 | disposition home or self-care (01) ==
PROVIDERS: Emergency Medicine; Emergency Provider Emergency Medicine Emergency Medical Services
DX: F33.1 Major depressive disorder, recurrent, moderate (principal); F41.9 Anxiety disorder, unspecified; F17.210 Nicotine dependence, cigarettes, uncomplicated; Z51.81 Encounter for therapeutic drug level monitoring
CPT/HCPCS: 36415; 80053; 80307; 85025; 99284; S9485